=== PATIENT | male | born 1955 | race Caucasian/White ===

== ENCOUNTER 2017-09-20 11:47 | Inpatient (IN) | payer OTHER, SELFPAY ==
[2017-09-20 12:41] LABS: #Basophils 0.1 thou/uL (0.0-0.2); #Lymphocytes 0.2 thou/uL (1.20-3.40); #Monocytes 0.1 thou/uL (0.11-0.59); #Neutrophils 7.3 thou/uL (1.40-6.50); %Basophils 1.6 % (0.0-1.0); %Eosinophils 0.2 % (0.0-10.0); %Lymphocytes 3.1 % (21.0-51.0); %Monocytes 0.7 % (0.0-10.0); %Neutrophils 94.4 % (42.0-75.0); Mean Corpuscular HGB CONC 31.7 g/dL (32.0-36.0); Mean Corpuscular Hemoglobin 29.9 pg (27.0-31.0); Mean Corpuscular Volume 94.2 fl (80.0-94.0); Mean Platelet Volume 8.7 fL (7.4-10.4); Platelet Count 200 thou/uL (130-400); RBC Distribution Width 12.1 % (11.5-14.5); White Blood Cell (WBC) Count 7.7 thou/uL (4.8-10.8)
[2017-09-20 13:02] LABS: ALT (SGPT) 10 U/L (8-55); AST (SGOT) 14 U/L (5-34); Albumin 3.9 g/dL (3.5-5.0); Alkaline Phosphatase 113 U/L (40-150); Anion Gap 14 mmol/L (10-20); BUN (Urea Nitrogen) 18 mg/dL (8.4-25.7); Bilirubin, Total 0.3 mg/dL (0.2-1.2); CK (CPK) 73 U/L (30-200); Calc. Creatinine Clearance 0 mL/min (70-130); Calcium 8.8 mg/dL (7.8-10.44); Carbon Dioxide 24 mmol/L (22-29); Chloride 97 mmol/L (98-107); Estimated GFR-MDRD 47; Globulin 3.1 g/dL (2.4-3.5); Glucose 482 mg/dL (70-105); Potassium 4.4 mmol/L (3.5-5.1); Sodium 131 mmol/L (136-145)
[2017-09-20 13:07] LABS: CKMB 3.5 ng/mL (0-6.6); Troponin I 0.011 ng/mL (< 0.028)
--- NOTE | 2017-09-20 13:09 | RAD ---
RADIOGRAPH OF CHEST 2 VIEWS: Date: 09/20/17 COMPARISON: 06/03/16 and 05/31/16. INDICATION: Bilateral effusions. FINDINGS: There is a moderate left and mild right pleural fluid collection. There is patchy density at the mid to inferior left lung, predominantly laterally. Cardiac silhouette is mildly prominent. Evidence of p rior sternotomy. Since prior exam, removal of right subclavian catheter and left chest tube. There is a punctate radiopaque density projecting at the inferomedial right hemithorax, which is stable when comparing to the 05/31/16 exam. IMPRESSION: Moderate left and mild right pleural effusion. POS: [facility]
[2017-09-20] MEDS ORDERED: Insulin Regular 300 UNITS/3 ML VIAL ONE (13:39)
[2017-09-20 16:42] VITALS: BMI 28.5
[2017-09-20] MEDS ORDERED: Ondansetron HCl/PF 4 MG/2 ML Vial IVP PRN ×2 (17:05→17:56)
[2017-09-20] MEDS ORDERED: Acetaminophen 325 MG TAB PO PRN ×2 (17:05→17:56)
[2017-09-20] MEDS ORDERED: Sodium Chloride 0.9% 1,000 ML IV SCH (17:05)
[2017-09-20] MEDS ORDERED: Ondansetron ODT 4 MG TAB SL PRN (17:05)
[2017-09-20] MEDS ORDERED: Bisacodyl 10 MG SUPP PR PRN (17:56)
[2017-09-20] MEDS ORDERED: Bisacodyl 5 MG TAB PO PRN (17:56)
[2017-09-20] MEDS ORDERED: Dextrose 50% Abboject 50 ML SYRINGE SLOW IVP PRN (17:56)
[2017-09-20] MEDS ORDERED: Ondansetron ODT 4 MG TAB PO PRN (17:56)
[2017-09-20] MEDS ORDERED: Acetaminophen 650 MG Suppository PR PRN (17:56)
[2017-09-20] MEDS ORDERED: HumaLOG 300 UNITS/3 ML VIAL SC PRN (17:56)
[2017-09-20] MEDS ORDERED: Dextrose 5% in Water 1,000 ML IV PRN (17:56)
--- NOTE | 2017-09-20 18:08 | HP ---
DATE OF ADMISSION: 09/20/2017 CHIEF COMPLAINT: Shortness of breath. HISTORY OF PRESENT ILLNESS: This is a 62-year-old male with about a week history of worsening cough and shortness of breath that had just been progressing. He was seen in [place] ED given Rocephin. Blood cultures were drawn, given nebs as well as Lasix and subsequently transferred to. He left [facility] and then decided to come to [place]. He currently says he feels quite a bit better. Still has a bit of a cough, but he specifically denies any chest pain, fever, purulent sputum, hemoptysis, nausea, vomiting, diarrhea, constipation, hematochezia, melena. He has had some orthopnea over the last several days as well as paroxysmal nocturnal dyspnea that started last night. REVIEW OF SYSTEMS: All systems reviewed and are otherwise negative. PAST MEDICAL HISTORY: Significant for diabetes 2, hypertension, hyperlipidemia , history of thyroglossal duct infection, history of C6-C7 osteomyelitis and paraspinal abscess, coronary artery disease with triple vessel bypass. PAST SURGICAL HISTORY: Includes a history of thyroglossal duct surgery, CABG, 3 -vessel. FAMILY HISTORY: Significant for hypertension, coronary artery disease. SOCIAL HISTORY: He is a smoker. Drinks occasionally. Works in [employer]. No drug use. MEDICATIONS: Include metformin, lisinopril, hydrocodone, Lasix, Pepcid, Plavix , Coreg, Lipitor and aspirin. He ran out of these in the recent past. ALLERGIES: No known drug allergies. PHYSICAL EXAMINATION: VITAL SIGNS: BP 154/80, pulse 100, respirations 18, O2 sat 95% on room air, temperature 98.0 CONSTITUTIONAL: No acute distress, resting comfortably in bed, sitting up. HEENT: Atraumatic. EYES: No icterus or injection. ENT: Nose normal. No nasal deformity. Mucous membranes moist. NECK: Trachea is midline. CHEST: No increased work of breathing. He has no wheezes. Diffuse crackles on the left lung and some on the right lung. CARDIOVASCULAR: Regular rate and rhythm without murmur, gallops or rub. The sternotomy scar is well healed. GASTROINTESTINAL: Bowel sounds positive. Nontender to palpation. No palpable organomegaly. GENITOURINARY: Deferred. NEUROLOGIC: Motor, 5/5 in the right upper extremity, 5/5 in bilateral lower extremities. He has some weakness, especially of the distal left arm from previous injury during thyroglossal duct surgery. SKIN: He has what appear to be diffuse guttate hypomelanosis likely related to skin damage as well as a petechia and increased pigmentation on his center of his chest downward from. He says it has been there for as long as he can remember because he wears his shirt open while working. PSYCHIATRIC: Normal. Mood and affect appropriate for current medical condition. Alert and oriented x3. MUSCULOSKELETAL: No obvious effusion, deformity or contracture with the exception of flattening with thenar eminence of the left upper extremity and some of the interosseous muscles. IMAGING: Chest x-ray, he has bilateral effusions, left greater than right. No obvious airspace disease. The effusion on the left appears to be along the left wall as well, chest wall as well. LABORATORY DATA: Include white count 7.7, hemoglobin 14, platelets 200. Chemistries: Sodium 131, potassium 4.4, chloride 97, bicarbonate 24, anion gap 14, BUN 18, creatinine 1.52 with estimated GFR of 47, glucose 482 and a BNP high at 442.5. ASSESSMENT AND PLAN: This is a 62-year-old male with: 1. Acute on chronic systolic heart failure. We will admit to tele, begin diuresis with IV Lasix. Continue home medications and has no signs currently of shock, supplement with O2 as necessary. 2. Pleural effusions on bedside ultrasound. Left is definitely greater than right. I cannot really find a significant right-sided effusion which raises concern for other pathology besides heart failure. Currently, he does not have significant signs of pneumonia, although he is given Rocephin and blood cultures drawn outside ER which we will follow up on. Besides cough, he has no white count, fever, and he likely has some underlying obstructive pulmonary disease related to his longstanding history of smoking. If no improvement with Lasix, we will consider treatment with antibiotics as well as scan his chest to evaluate the effusion for any underlying pneumonia, empyema or malignancy. 3. Diabetes mellitus, uncontrolled. He has received IV fluid bolus already. We will go ahead and give him sliding scale insulin. Send A1c, TSH, lipid panel. 4. Acute kidney injury likely related to his hyperglycemia but could potentially be progression related to his diabetes and hypertension. We will manage as above and recheck in the morning. 5. Hyponatremia feel like this is most likely his heart failure as well as potential pleural effusion. We will monitor and recheck in the morning, fluid restrictions as above for heart failure. 6. Hypertension, restart home blood pressure meds and monitor including a statin and aspirin. 7. Hyperlipidemia. Continue statin. 8. History of coronary artery disease. Continue aspirin, statin, beta jamel , SARIKA inhibitor. 9. Obesity. Counseled diet and exercise. 10. Tobacco abuse, counseled on tobacco cessation. 11. Deep venous thrombosis prophylaxis with Lovenox. 12. Gastrointestinal prophylaxis with diet. MTDD
[2017-09-20] MEDS ORDERED: Enoxaparin Sodium 40 MG/0.4 ML SYRINGE SC SCH (18:15)
[2017-09-20] MEDS ORDERED: Furosemide 40 MG/4 ML VIAL SLOW IVP SCH (18:15)
[2017-09-20 18:23] LABS: Hemoglobin A1c 8.7 % (4.0-6.0)
[2017-09-20 18:34] LABS: Phosphorus 2.7 mg/dL (2.3-4.7)
[2017-09-20 18:41] LABS: Troponin I 0.017 ng/mL (< 0.028)
[2017-09-20] MEDS: HumaLOG 300 UNITS/3 ML VIAL SC PRN (20:41)
[2017-09-20] MEDS: Sulfameth/Trimethoprim DS 800-160mg TAB PO SCH (20:41)
[2017-09-20] MEDS: Atorvastatin Calcium 40 MG TAB PO SCH (20:41)
[2017-09-20] MEDS: Carvedilol 3.125 MG TAB PO SCH (20:41)
[2017-09-20] MEDS ORDERED: FLU VACC QS2017-18 36 mo. & older 0.5 ML SYRINGE IM ONE (21:00)
[2017-09-20 21:05] LABS: Troponin I 0.012 ng/mL (< 0.028)
--- NOTE | 2017-09-20 22:39 | HP-2 ---
DATE OF ADMISSION: 09/20/2017 CODE STATUS: FULL. PRIMARY CARE PHYSICIAN: Fernando baker. ATTENDING: Luther Pappas MD RESIDENT: Gurpreet Banegas MD, PGY1. SPECIALIST: He sees his cognos bi developer, Dr. Napoles. CHIEF COMPLAINT: Shortness of breath. HISTORY OF PRESENT ILLNESS: This is a 62-year-old male that comes in with a recent episode of shortness of breath last night in which he got hot and sweaty, real short of breath, did not have any chest pain, but said it felt like his heart attack back in 2016. The patient states that he went to the [facility] last night for this. At this time, they gave him steroids, Rocephin, Lasix, and nitro, but we are going to admit him, but at this time he decided to leave [place] and come to [place] because this is where his cognos bi developer, Dr. Napoles was. The patient denied any dizziness, headache, lightheadedness. Denied any chest pain or radiation of pain anywhere. Has not had any episodes of shortness of breath since, not requiring oxygen at this time. Denied any swelling in his legs or edema. Did report about a week ago having some cough and nasal congestion, did vomit x1 day last week, thought he had the flu. He says he is still having the nasal congestion, but everything else has since resolved. Denies any fever or chills. Denies any ear pain. Denies any rashes. Denies any nausea, vomiting, diarrhea, or constipation. Denies any urinary symptoms, burning with urination, or urinary retention. The patient states that he had a heart echo back 6-7 months ago, was told he needed another follow up heart echo, but has not since done it. He says he recently saw Dr. Napoles a week ago and Dr. Napoles said he looked good and recently took him off his Plavix. REVIEW OF SYSTEMS: All review of systems not listed in the HPI, otherwise negative at this time. PAST MEDICAL HISTORY: History of 3-vessel CABG, diabetes mellitus type 2, uncontrolled hypertension, noncompliance, with systolic CHF with a past EF of 35 %. PAST SURGICAL HISTORY: I&D of thyroglossal duct cyst with residual left arm deficits, I&D of sebaceous cyst in the neck and heart catheterization back in 2014 and the 3-vessel CABG in 2016. ALLERGIES: No known drug allergies. MEDICATIONS: 1. Atorvastatin 40 mg. 2. Carvedilol 3.125 mg b.i.d. 3. Bactrim 800 mg/160 mg 2 times a day. 4. Aspirin 81 mg. FAMILY HISTORY: Insignificant. SOCIAL HISTORY: One pack per day smoker for 40+ years. He has recently cut back from 3 packs per day. Alcohol: None. Drugs: None. PHYSICAL EXAMINATION: VITAL SIGNS: Blood pressure is 139/76, pulse 96, respirations 18, temperature 98.0, pulse ox 98% on room air. Current weight 80 kilograms. GENERAL: Alert and oriented x3, well-developed, well-nourished, appropriately interactive. EYES: PERRLA. Conjunctivae normal. ENT: Nasal mucosa within normal limits. Oropharynx within normal limits. NECK: Supple. No lymphadenopathy, no thyromegaly, no bruits. CARDIOVASCULAR: Regular rate and rhythm. No murmurs, no gallops. Radial pulses and pedal pulses palpated bilaterally. RESPIRATORY: Normal breathing effort. No retraction. Some mild crackles. Decreased breath sounds in the bases bilaterally. SKIN: Warm, dry. No lesions noted. ABDOMEN: Soft, nontender to palpation. Bowel sounds heard in all 4 quadrants, moderately distended of his abdomen. MUSCULOSKELETAL: Structure within normal limit. Full range of motion. No edema. No pitting edema in his lower extremities at all. NEUROLOGIC: No focal neuro deficits. PSYCHIATRIC: Appropriate. LABORATORY DATA: White blood cell count 7.7, hemoglobin 14.0, hematocrit 44.3, MCV 94.7, 94.4% neutrophils. Platelets are 200. CK 73, CK-MB 3.5, troponin is 0.011. BNP is 442.5. Sodium is 131, potassium 4.4, chloride 97, CO2 of 24, BUN 18, creatinine 1.52, glucose is 482, calcium is 8.8, total protein 7.0, albumin 3.9, total bilirubin 0.3, AST 14, ALT 10, alkaline phos 113. Chest x- ray showed moderate left and mild right pleural effusions. ASSESSMENT AND PLAN: 1. Acute congestive heart failure exacerbation. We will give him a dose of Lasix IV 40 mg a day and then we will continue Lasix b.i.d. tomorrow. We will get a repeat chest x-ray to see how he is doing tomorrow. We will get a repeat echo as he was to have one on followup and see where he is at with his ejection fraction. We will get a flu swab as he might have some illness. Dr. Napoles was contacted by the ER and see if he sees him. We will put him on strict I's and O's, daily weights. We will check a TSH, magnesium, phosphorus. We will trend his troponins as he mentioned this may be felt like his old heart attack. Check a fasting lipid panel in the morning and repeat chest x-ray in the morning. 2. Acute kidney injury. We will recheck BMP in the morning. We are holding fluids right now as he is probably having a little bit of congestive heart failure exacerbation, giving him Lasix. We will see how his a.m. creatinine does. He may have some fluid in his belly. His SIMÓN might actually improved with Lasix. 3. Diabetes mellitus 2, uncontrolled. We will get a hemoglobin A1c. He has got regular insulin 5 units in the ER. We will put him on mild sliding scale insulin and do Accu-Cheks a.c. and at bedtime. 4. Hypertension. Continue home meds. 5. Sebacous Neck Cysts. Continue the Bactrim. He will see Dr. Arenas for removal on 09/26/2017. 6. Deep venous thrombosis prophylaxis is Lovenox. LD
[2017-09-21 05:06] LABS: #Lymphocytes 0.7 thou/uL (1.20-3.40); #Monocytes 0.4 thou/uL (0.11-0.59); %Basophils 0.3 % (0.0-1.0); %Monocytes 3.1 % (0.0-10.0); %Neutrophils 90.6 % (42.0-75.0); Hemoglobin 13.2 g/dL (14.0-18.0); Mean Corpuscular HGB CONC 32.3 g/dL (32.0-36.0); Mean Corpuscular Hemoglobin 30.2 pg (27.0-31.0); Mean Corpuscular Volume 93.4 fl (80.0-94.0); Platelet Count 213 thou/uL (130-400); RBC Distribution Width 12.1 % (11.5-14.5); Red Blood Cell (RBC) Count 4.38 mill/uL (4.70-6.10); White Blood Cell (WBC) Count 12.1 thou/uL (4.8-10.8)
--- NOTE | 2017-09-21 06:08 | PDOC.FM ---
Addendum entered and electronically signed by Gurpreet Banegas MD 09/21/17 14:35 : CT read pending Original Note: - Subjective Subjective: Pt reports doing a lot better this morning. Denies any SOB events overnight. Denies any other acute events overnight. Denies any chest pain. Denies any fever or chills. Denies any lightheadness or dizziness. Denies any concerning sx 's at this time. No other concerns. - Objective MAR Reviewed: Yes Vital Signs & Weight: Vital Signs (12 hours) Temp Pulse Resp BP BP Pulse Ox 09/21/17 03:09 97.8 F 100 18 145/69 H 92 L 09/20/17 23:38 97.7 F 100 18 130/66 93 L 09/20/17 19:15 98 F 87 18 140/70 96 Weight Weight 85.275 kg I&O: 09/19/17 09/20/17 09/21/17 06:59 06:59 06:59 Intake Total 240 Balance 240 Result Diagrams: 09/21/17 04:27 09/21/17 04:27 EKG Reviewed by me: Yes Radiology Reviewed by me: Yes (Radiology repeat pending today) <Gurpreet Banegas - Last Filed: 09/21/17 08:48> - Objective Vital Signs & Weight: Vital Signs (12 hours) Temp Pulse Pulse Pulse Resp BP BP 09/21/17 11:58 97.8 F 92 18 09/21/17 10:54 124 H 121 H 141/68 H 150/67 H 09/21/17 07:45 97.9 F 91 16 09/21/17 03:09 97.8 F 100 18 BP BP Pulse Ox Pulse Ox Pulse Ox 09/21/17 11:58 145/77 H 94 L 09/21/17 10:54 96 94 L 09/21/17 07:45 140/69 94 L 09/21/17 03:09 145/69 H 92 L Weight Weight 85.275 kg I&O: 09/20/17 09/21/17 09/22/17 06:59 06:59 06:59 Intake Total 480 Output Total 1700 Balance -1220 Result Diagrams: 09/21/17 04:27 09/21/17 04:27 <Luther Pappas - Last Filed: 09/21/17 14:55> Phys Exam - Physical Examination HEENT: PERRLA, moist MMs Neck: no nodes, supple, full ROM Respiratory: no wheezing, no rales, no rhonchi mild crackles and decreased breath sounds on the left side in base Cardiovascular: RRR, no significant murmur, no rub Gastrointestinal: soft, non-tender, positive bowel sounds mildly distended Musculoskeletal: no edema, pulses present Neurological: non-focal, normal sensation, moves all 4 limbs Lymphatic: no nodes Psychiatric: normal affect Skin: no rash, cap refill <2 seconds <Gurpreet Banegas - Last Filed: 09/21/17 08:48> Dx/Plan (1) Acute exacerbation of CHF (congestive heart failure) Code(s): I50.9 - HEART FAILURE, UNSPECIFIED Status: Acute (2) CAD (coronary artery disease) Code(s): I25.10 - ATHSCL HEART DISEASE OF [place] CORONARY ARTERY W/O ANG PCTRS Status: Chronic (3) DM type 2 (diabetes mellitus, type 2) Status: Chronic QualifierTitle: Diabetes mellitus complication status: with hyperglycemia Diabetes mellitus termite inspector insulin use: without longterm use Qualified Code(s): E11.65 - Type 2 diabetes mellitus with hyperglycemia (4) HTN (hypertension) Code(s): I10 - ESSENTIAL (PRIMARY) HYPERTENSION Status: Chronic (5) Tobacco abuse Code(s): Z72.0 - TOBACCO USE Status: Chronic - Plan Plan: 1) Acute CHF excacerbation -Pt comes in with episode of SOB two nights ago. Increasing SOB two nights prior in which he was having to prop himself out. -CXR 09/20 shows bilateral pleural effusions. Repeat Cxray pending today. -Lasix IV BID -Fluid Restriciton -Daily Weights -Heart Failure clinic and Cardiac Rehab counseled. -ECHO Pending -Continuing home meds -Trops trended and normal. No acute heart attack likely. -TSH normal. Mg, P normal. -FLP pending 2) DM2 w/ hyperglycemia -Pt not taking any medications at home. Hgb A1C 8.7. -Mod SSI. Sugars still elevated overnight. Sugars have started to come home. -Accuchecks ACHS -Likely will start on metformin as well today. 3) SIMÓN -Cr 1.52 yesterday. 1.51 today. Baseline Cr back in 2016 was 1. -Awaiting BMP. No fluids due to CHF above. But maybe pushing fluid to his kidneys will improve Cr. -Also termite inspector Diabetic untreated. Cr could be at new baseline. 4)HTN -continue home meds. BP stable at this time 5)Tobacco Abuse -has cut down from 3 ppd to 1 ppd. counseled to continue cutting back <Gurpreet Banegas - Last Filed: 09/21/17 08:48> Attending Addendum - Attending Addendum I personally evaluated the patient and discussed the management with Dr. Alston. I agree with and repeated the History, Examination, Assessment and Plan documented above with any addition or exceptions noted below. Pt markedly improved. Agree with exam. Await CT read, may consider pulm consultation. Continue medical mgmt of CAD, DM. Counseled extensively concerning diet, exercise, and tobacco cessation. I spent 40 minutes with patient and on the floor with > 50% spent counseling concerning management of his comorbidities, possibilities for the hospitalization, and outpatient considerations. <Luther Pappas - Last Filed: 09/21/17 14:55>
[2017-09-21] MEDS ORDERED: Furosemide 40 MG/4 ML VIAL SLOW IVP SCH ×2 (06:15→06:30)
[2017-09-21 06:21] LABS: Anion Gap 13 mmol/L (10-20); BUN (Urea Nitrogen) 32 mg/dL (8.4-25.7); Calc. Creatinine Clearance 63 mL/min (70-130); Calcium 9.2 mg/dL (7.8-10.44); Carbon Dioxide 24 mmol/L (22-29); Cardiac Risk 4.1 (Less than 4.5); Chloride 100 mmol/L (98-107); Cholesterol 119 mg/dl (< 200 Desired); Estimated GFR-MDRD 47; Glucose 216 mg/dL (70-105); HDL Cholesterol 29 mg/dL (>60 Neg Risk); LDL Cholesterol, Calculated 76 mg/dL; Potassium 4.3 mmol/L (3.5-5.1); Sodium 133 mmol/L (136-145); Triglycerides 72 mg/dL (Less than 150)
[2017-09-21] MEDS ORDERED: metFORMIN 500 MG TAB PO SCH ×2 (09:00)
[2017-09-21] MEDS ORDERED: Insulin Detemir 100 UNITS/ML 10 UNITS in Pre-Filled Syringe 1 EACH SC SCH (09:00)
--- NOTE | 2017-09-21 09:10 | RAD ---
PA AND LATERAL VIEWS OF CHEST: Date: 09/21/17 HISTORY: Shortness of breath. FINDINGS: Comparison made with exam from previous day. Changes of median sternotomy again seen. The heart size is stable. Moderate size left pleural effusio n with adjacent infiltrates/atelectatic changes again seen. Right lung is clear. A tiny right pleural effusion may be present. IMPRESSION: Stable exam. POS: [facility]
[2017-09-21] MEDS: Sulfameth/Trimethoprim DS 800-160mg TAB PO SCH ×2 (10:35→20:40)
[2017-09-21] MEDS: Enoxaparin Sodium 40 MG/0.4 ML SYRINGE SC SCH (10:35)
[2017-09-21] MEDS: Carvedilol 3.125 MG TAB PO SCH ×2 (10:35→20:40)
[2017-09-21] MEDS: HumaLOG 300 UNITS/3 ML VIAL SC PRN (12:01)
--- NOTE | 2017-09-21 14:16 | CT ---
NONCONTRAST CT THORAX: Date: 09/21/17 HISTORY: Right lower lobe infiltrate, history of smoking. Shortness of breath last week. COMPARISON: CT angiogram thorax on 05/29/16. FINDINGS: There is a loculated pleural fluid collection seen at the left lung base. There is patchy parenchymal opacity present in the lateral aspect of the lingula, as well as parenchymal changes adjacent to the collection in the left lower lobe. These findings may be related to areas of atelectasis, but the de nsity within the lingula has a more nodular and mass-like appearance and neoplastic process cannot be entirely excluded. Additional linear densities are also seen in this region, probably related to are as of scarring. A calcified granuloma is seen in the right lower lobe. A tiny bleb is seen within the right upper lob e inferiorly. There is a tiny pulmonary nodule seen at the lateral aspect of the right upper lobe elena suring approximately 4.0 mm. Lack of intravenous contrast limits sensitivity for evaluation of the mediastinal structures. There a re postsurgical changes related to CABG. Vascular calcifications are seen in the thoracic aorta and t o a lesser extent in the coronary arteries. Calcified granulomata are seen in each hilar region, as well as in the right lower lobe. Visualized upper abdomen demonstrates grossly normal nonenhanced CT appearance aside from calcified g ranuloma in the spleen and a moderate amount of retained fecal material in the visualized splenic fle xure. Remote left-sided rib fractures are seen. The right pleural effusion noted on prior exam has resolved. The left pleural fluid collection was no t seen on the prior study. IMPRESSION: 1. Small loculated pleural fluid collection seen at the posterior and posterolateral left lung base with adjacent parenchymal lung changes which may be related to atelectasis. However, one of the adjac ent patchy parenchymal changes within the lingula has a more nodular appearance. Neoplastic process c annot be entirely excluded, but this is probably related to an area of rounded atelectasis. There are areas of scarring in the left upper lobe. 2. Nonspecific 4.0 mm noncalcified right upper lobe pulmonary nodule. Right lung is otherwise clear. 3. Evidence of prior granulomatous disease. 4. Moderate amount of retained fecal material in the colon. 5. Nonspecific prominent prevascular space lymph node measuring 10.0 mm in short axis dimension. POS: [facility]
[2017-09-21] MEDS: Furosemide 40 MG/4 ML VIAL SLOW IVP SCH (14:45)
[2017-09-21] MEDS: metFORMIN 500 MG TAB PO SCH (17:27)
[2017-09-21] MEDS: Atorvastatin Calcium 40 MG TAB PO SCH (20:40)
[2017-09-22] MEDS: Furosemide 40 MG/4 ML VIAL SLOW IVP SCH ×2 (05:27→14:54)
--- NOTE | 2017-09-22 05:53 | PDOC.FM ---
- Subjective Subjective: Pt doing well. Denies any acute events overnight. Denies any more SOB. Says he feels great and denies any sx's at this time. Denies any fever or chills. Denies any swelling. No other concerns at this time. - Objective MAR Reviewed: Yes Vital Signs & Weight: Vital Signs (12 hours) Temp Pulse Resp BP Pulse Ox 09/22/17 04:07 98.2 F 79 18 140/75 92 L 09/21/17 19:00 98.4 F 89 18 157/80 H 96 Weight Weight 84.504 kg I&O: 09/20/17 09/21/17 09/22/17 06:59 06:59 06:59 Intake Total 480 1920 Output Total 1700 3450 Balance -1220 -1530 Result Diagrams: 09/22/17 06:15 09/22/17 06:15 Radiology Reviewed by me: Yes Radiology: CT Chest: 1. Small loculated pleural fluid collection seen at the posterior and posterolateral left lung base w/ adjacent parenchymal lung changes which may be related to atelectasis. However, one of the adjuacent patchy parenchymal changes w/n the lingula has a more nodular appearance. neoplastic process cannot be entirely excluded, but this is probably related to an area of rounded atelectasis. there are areas of scarring in the [place]. 2. Nonspecific 4.0 noncalcified RUL pulm nodule. RL clear 3. Evidence of prior granulomatous dz 4. Mod amount fecal material in colon 5. Nonspecific prominent prevascular space LN measuring 10 mm in short axis dimension. <Gurpreet Banegas - Last Filed: 09/22/17 07:34> - Objective Vital Signs & Weight: Vital Signs (12 hours) Temp Pulse Resp BP Pulse Ox 09/22/17 07:43 97.9 F 86 18 95 09/22/17 07:15 97.9 F 86 18 167/81 H 95 09/22/17 04:07 98.2 F 79 18 140/75 92 L Weight Weight 186 lb 4.8 oz I&O: 09/21/17 09/22/17 09/23/17 06:59 06:59 06:59 Intake Total 480 1920 Output Total 1700 3450 Balance -1220 -1530 Result Diagrams: 09/22/17 06:15 09/22/17 06:15 <Jairo Denny - Last Filed: 09/22/17 10:38> Phys Exam - Physical Examination Constitutional: NAD HEENT: PERRLA, moist MMs Neck: no nodes, no JVD, supple, full ROM Respiratory: no wheezing, no rales Decreased breath sounds on left. Mild crackles auscultated some rhonchi noted Cardiovascular: RRR, no significant murmur, no rub Gastrointestinal: soft, non-tender, no distention, positive bowel sounds Musculoskeletal: no edema, pulses present Neurological: non-focal, normal sensation, moves all 4 limbs Lymphatic: no nodes Psychiatric: normal affect Skin: no rash, normal turgor <Gurpreet Banegas - Last Filed: 09/22/17 07:34> Dx/Plan (1) Acute exacerbation of CHF (congestive heart failure) Code(s): I50.9 - HEART FAILURE, UNSPECIFIED Status: Acute (2) CAD (coronary artery disease) Code(s): I25.10 - ATHSCL HEART DISEASE OF [place] CORONARY ARTERY W/O ANG PCTRS Status: Chronic (3) Pleural effusion on left Code(s): J90 - PLEURAL EFFUSION, NOT ELSEWHERE CLASSIFIED Status: Acute (4) DM type 2 (diabetes mellitus, type 2) Status: Chronic QualifierTitle: Diabetes mellitus complication status: with hyperglycemia Diabetes mellitus longterm insulin use: without longterm use Qualified Code(s): E11.65 - Type 2 diabetes mellitus with hyperglycemia (5) HTN (hypertension) Code(s): I10 - ESSENTIAL (PRIMARY) HYPERTENSION Status: Chronic (6) Tobacco abuse Code(s): Z72.0 - TOBACCO USE Status: Chronic - Plan Plan: Acute CHF excacerbation -Pt comes in with episode of SOB two nights ago. Increasing SOB two nights prior in which he was having to prop himself out. -CXR 09/20 shows bilateral pleural effusions. Cxray 09/21 stable exam. -CT Chest- Shows loculated pleural fluid. Possible nodular appearance. Neoplastic process can't be excluded. Nonspecific noncalcified upper veronica pulm nodule in RL. Prior granulomatous dz. Prominent prevascular space LN measuing 10.0 mm in short axis dimension. -Lasix IV BID -Fluid Restriciton -Daily Weights -Heart Failure clinic and Cardiac Rehab counseled. -ECHO- EF 45-50%. -Continuing home meds -Trops trended and normal. No acute heart attack likely. -TSH normal. Mg, P normal. -FLP- HDL low Pleural Effusion of L Lung -Both cxray show same effusion with little improvement after lasix therapy. CT chest possibly concerning for neoplastic process. Since of unilateral presentation of pleural effusion, does not fit CHF picture, have consulted Pulm Pulmonology Consulted- Dr. Moulton- Will follow recs DM2 w/ hyperglycemia -Pt not taking any medications at home. Hgb A1C 8.7. -Mod SSI. Sugars still elevated overnight. Sugars have started to come dome -Accuchecks ACHS -Metformin started. will watch with GFR SIMÓN -Cr 1.52 yesterday. 1.51 today. Baseline Cr back in 2016 was 1. -Awaiting BMP. No fluids due to CHF above. But maybe pushing fluid to his kidneys will improve Cr. 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 HTN -continue home meds. BP stable at this time Tobacco Abuse -has cut down from 3 ppd to 1 ppd. counseled to continue cutting back <Gurpreet Banegas - Last Filed: 09/22/17 07:34> Attending Addendum - Attending Addendum I personally evaluated the patient and discussed the management with [Bassam ] I agree with the History, Examination, Assessment and Plan documented above. We are awaiting Pulmonology to see him and assess findings on his recent CT scan. Once they have given their plan he is stable for discharge. <Jairo Denny - Last Filed: 09/22/17 10:38>
[2017-09-22 06:33] LABS: #Basophils 0.1 thou/uL (0.0-0.2); #Eosinphils 0.2 thou/uL (0.0-0.7); #Lymphocytes 2.2 thou/uL (1.20-3.40); #Monocytes 0.6 thou/uL (0.11-0.59); #Neutrophils 6.9 thou/uL (1.40-6.50); %Basophils 0.7 % (0.0-1.0); %Lymphocytes 22.1 % (21.0-51.0); %Monocytes 5.5 % (0.0-10.0); %Neutrophils 69.7 % (42.0-75.0); Hemoglobin 15.1 g/dL (14.0-18.0); Mean Corpuscular HGB CONC 31.8 g/dL (32.0-36.0); Mean Corpuscular Hemoglobin 30.4 pg (27.0-31.0); Mean Corpuscular Volume 95.7 fl (80.0-94.0); Mean Platelet Volume 9.3 fL (7.4-10.4); Platelet Count 222 thou/uL (130-400); RBC Distribution Width 12.5 % (11.5-14.5); Red Blood Cell (RBC) Count 4.97 mill/uL (4.70-6.10); White Blood Cell (WBC) Count 9.9 thou/uL (4.8-10.8)
[2017-09-22 06:50] LABS: Anion Gap 13 mmol/L (10-20); BUN (Urea Nitrogen) 34 mg/dL (8.4-25.7); Calc. Creatinine Clearance 59 mL/min (70-130); Calcium 9.1 mg/dL (7.8-10.44); Carbon Dioxide 23 mmol/L (22-29); Chloride 100 mmol/L (98-107); Estimated GFR-MDRD 44; Glucose 200 mg/dL (70-105); Potassium 4.2 mmol/L (3.5-5.1); Sodium 132 mmol/L (136-145)
[2017-09-22] MEDS: metFORMIN 500 MG TAB PO SCH ×2 (08:15→16:22)
[2017-09-22] MEDS: Carvedilol 3.125 MG TAB PO SCH (08:15)
[2017-09-22] MEDS: Sulfameth/Trimethoprim DS 800-160mg TAB PO SCH (08:15)
[2017-09-22] MEDS: Enoxaparin Sodium 40 MG/0.4 ML SYRINGE SC SCH (08:15)
[2017-09-22 16:22] VITALS: BP 155/83; TEMP 98.9
--- NOTE | 2017-09-25 09:19 | DIS-2 ---
DATE OF ADMISSION: 09/20/2017 DATE OF DISCHARGE: 09/22/2017 CONSULTS: Dr. Moulton, but he never saw the patient. PROCEDURES: 1. We did get an echo, which showed EF of 45%-50%, normal-sized atrium, left ventricular size normal, mild aortic regurg, and moderate mitral regurgitation. 2. Chest x-ray on 09/20/2017 showed moderate left and mild right pleural effusion. 3. Chest x-ray repeat on 09/21/2017 showed stable exam. 4. Chest CT on 09/21/2017 showed: A. Small loculated pleural fluid collection seen at the posterior and posterolateral left lung base with adjacent parenchymal lung changes, which may be related to atelectasis; however, one of the adjacent patchy parenchymal changes within the lingula has a more nodular appearance. Neoplastic process cannot be entirely excluded, but this is probably related to an area of noted atelectasis. There are areas of scarring in the left upper lobe. B. Nonspecific 4 mm noncalcified right upper lobe pulmonary nodule, right lung is otherwise clear. C. Evidence of prior granulomatous disease. D. Moderate amount of retained fecal matter in the colon. E. Nonspecific prominent prevascular space lymph node measuring 10 mm in short axis dimension. PRIMARY DIAGNOSES: Included: 1. Acute congestive heart failure exacerbation and coronary artery disease, pleural effusion on the left. 2. Diabetes mellitus, type 2. 3. Hypertension and tobacco abuse. DISCHARGE MEDICATIONS: Include Lasix 20 mg p.o. p.r.n., metformin 500 mg p.o. b.i.d., acetaminophen 650 mg p.o. q.4 hours as needed, aspirin 81 mg p.o. daily , atorvastatin 40 mg p.o. at bedtime, carvedilol 3.125 mg p.o. b.i.d., Bactrim 800 mg/160 mg p.o. b.i.d. No medications were discontinued at this time. HISTORY OF PRESENT ILLNESS AND BRIEF HOSPITAL COURSE: This is a 62-year-old, male, who comes in with a recent episode of shortness of breath that happened last night, in which, he got hot and sweaty, less short of breath, did not have any chest pain and said that it felt like he has heart attack. 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 He denied any other symptoms at this time. When he came in, findings on chest x-ray were found above. His white blood cell count was normal at 7.7. His neutrophil percent was 95.6. His glucose on admission was 482. His creatinine was 1.52 and his CK-MB was 3.5, and his troponin was 0.011. His BNP was 442.5. At this time, we admitted him for acute CHF thinking his pleural effusion may have been the cause, but it was kind of a unilateral pleural effusion, so at this time, I gave him some IV Lasix 40 mg, watch him over the next day and then, a repeat chest x-ray showed stable, so at this time, we started to get a CT chest. Patient had a 40-year smoking history, was still smoking a pack per day and recently cut back to 3 packs per day. Chest CT showed a concerning findings for neoplasm. At this time on Sunday at , we consulted Dr. Moulton, who ended up being too busy and never was able to come to see the patient, but recommended the patient will follow up with him at the outpatient clinic. Patient continued to improve while he was here, he never had any shortness of breath, never required oxygen. He never had any more episodes of being short of breath while being here. Also on admission, he was found that his blood sugar was 482, had never taken care of his diabetes. He got a hemoglobin A1c, which showed 8.7 and we gave him a low dose of regular insulin, put him on mild sliding scale insulin which continued to trend down and we started him on metformin b.i.d. His GFR was right at the baseline around 47. At this time, we thought it would be beneficial for the patient to be on metformin. At this time also we thought, he might have had an acute kidney injury, but it looks like he has chronic kidney disease stage 3, stable, probably from untreated diabetes. I started him on his meds, we continued his home medications for the heart failure. We also outpatient recommended him to take Lasix, recommended he weigh himself every day. If he notices himself to be fluid overloaded to take a dose of lasix). At this time, also on 09/21/2017, his white blood cell count was elevated at 12.1, and we attributed this to the steroids he got the outside ER. We also thought that his blood sugar is probably a little bit more elevated than what it probably was at baseline due to the steroids he got at the outside ER. At this time, patient was anxious to go home on Sunday, did not want to wait for Dr. Moulton to come see him. Dr. Moulton said that he could follow up as an outpatient, so he is going to get schedule an appointment outpatient for that week and we did discharge him. DISPOSITION: Stable. DISCHARGE LOCATION: Home. ACTIVITY: Stable as tolerated. DIET: Heart-healthy diet. FOLLOWUP: We need to setup care with primary care physician. Follow up in 30 days for hospital followup and then follow up with Dr. Moulton within 1 week. LD
--- NOTE | 2017-10-13 17:48 | EKG ---
Test Reason : Blood Pressure : / mmHG Vent. Rate : 097 BPM Atrial Rate : 097 BPM P-R Int : 150 ms QRS Dur : 076 ms QT Int : 376 ms P-R-T Axes : 066 -46 132 degrees QTc Int : 477 ms Normal sinus rhythm Possible Left atrial enlargement Left axis deviation T wave abnormality, consider lateral ischemia Prolonged QT Abnormal ECG No changes 29-MAY-2016 Confirmed by GREGG ALVARES, CECE ([id number]), assistant film editor PERLA CHAKRABORTY ([id number]) on 10/13/2017 5:47:42 PM Referred By: ERNA CRISTOBAL Confirmed By:CECE ESCOBEDO MD
== END 2017-09-22 17:30 | disposition home or self-care (01) | DRG 291 ==
LOC: ERS 11:47 → 2NO 13:56
PROVIDERS: ADMIT Student in an Organized Health Care Education/Training Program; ATTEND Student in an Organized Health Care Education/Training Program
DX: I11.0 Hypertensive heart disease with heart failure (principal); N17.0 Acute kidney failure with tubular necrosis; E87.1 Hypo-osmolality and hyponatremia; Z95.1 Presence of aortocoronary bypass graft; E11.65 Type 2 diabetes mellitus with hyperglycemia; I25.2 Old myocardial infarction; Z79.82 Long term (current) use of aspirin; I50.23 Acute on chronic systolic (congestive) heart failure; L72.3 Sebaceous cyst; I25.10 Atherosclerotic heart disease of native coronary artery without angina pectoris; F17.210 Nicotine dependence, cigarettes, uncomplicated; E78.5 Hyperlipidemia, unspecified; I35.1 Nonrheumatic aortic (valve) insufficiency; I34.0 Nonrheumatic mitral (valve) insufficiency; Z79.84 Long term (current) use of oral hypoglycemic drugs
CPT/HCPCS: 36415; 36416; 71046; 71250; 80048; 80053; 80061; 82553; 83036; 83735; 83880; 84100; 84443; 84484; 85025; 93005; 93306; 93798; 94760; 96361; 96374; J1650; J1815; J1940

== ENCOUNTER 2017-12-06 13:33 | Outpatient (CLI) | payer OTHER | END 2017-12-06 13:34 | disposition home or self-care (01) | LOC: BICRAD 13:33 | PROVIDERS: ATTEND Physician Assistant | DX: I11.0 Hypertensive heart disease with heart failure (principal); I50.22 Chronic systolic (congestive) heart failure; J90 Pleural effusion, not elsewhere classified | CPT/HCPCS: 71046 ==

== ENCOUNTER 2018-01-07 12:39 | Outpatient (CLI) | payer OTHER ==
[2018-01-07] MEDS ORDERED: Iopamidol 370 76% 100 ML VIAL ONE (14:54)
== END 2018-01-07 12:40 | disposition home or self-care (01) ==
LOC: BICCT 12:39
PROVIDERS: ATTEND Thoracic Surgery (Cardiothoracic Vascular Surgery)
DX: I65.22 Occlusion and stenosis of left carotid artery (principal); K11.8 Other diseases of salivary glands
CPT/HCPCS: 70498; 82565

== ENCOUNTER 2020-12-29 23:36 | Emergency (ER) | payer SELFPAY ==
[2020-12-30 00:04] LABS: #Eosinphils 0.9 thou/uL (0.0-0.7); #Lymphocytes 1.3 thou/uL (1.20-3.40); #Monocytes 0.6 thou/uL (0.11-0.59); #Neutrophils 11.1 thou/uL (1.40-6.50); %Basophils 0.3 % (0.0-1.0); %Eosinophils 6.7 % (0.0-10.0); %Lymphocytes 9.3 % (21.0-51.0); %Monocytes 4.2 % (0.0-10.0); %Neutrophils 79.5 % (42.0-75.0); Hemoglobin 14.1 g/dL (14.0-18.0); Mean Corpuscular HGB CONC 33.7 g/dL (32.0-36.0); Mean Corpuscular Hemoglobin 32.7 pg (27.0-31.0); Mean Corpuscular Volume 97.1 fL (78.0-98.0); Mean Platelet Volume 8.8 fL (7.4-10.4); Platelet Count 235 thou/uL (130-400); RBC Distribution Width 12.5 % (11.5-14.5)
[2020-12-30] MEDS ORDERED: Nitroglycerin 2% Ointment 1 INCH/1 GM Packet ONE (00:13)
[2020-12-30 00:19] LABS: ALT (SGPT) 10 U/L (8-55); AST (SGOT) 15 U/L (5-34); Albumin 3.6 g/dL (3.4-4.8); Alkaline Phosphatase 93 U/L (40-110); Anion Gap 14 mmol/L (10-20); BUN (Urea Nitrogen) 22 mg/dL (8.4-25.7); Bilirubin, Total 0.4 mg/dL (0.2-1.2); Calc. Creatinine Clearance 0 mL/min (70-130); Calcium 8.9 mg/dL (7.8-10.44); Carbon Dioxide 24 mmol/L (23-31); Chloride 106 mmol/L (98-107); Globulin 3.2 g/dL (2.4-3.5); Glucose 120 mg/dL (80-115); Potassium 4.5 mmol/L (3.5-5.1); Protein, Total 6.8 g/dL (5.8-8.1); Sodium 139 mmol/L (136-145)
[2020-12-30] MEDS ORDERED: Furosemide 40 MG/4 ML VIAL ONE (01:02)
[2020-12-30 11:36] LABS: SARS-CoV-2 PCR by NAA Not Detected (NotDetected)
== END 2020-12-30 01:05 | disposition home or self-care (01) ==
LOC: ERS 23:36
DX: R06.00 Dyspnea, unspecified (principal); I11.0 Hypertensive heart disease with heart failure; I50.9 Heart failure, unspecified; E78.5 Hyperlipidemia, unspecified; Z20.822 Contact with and (suspected) exposure to COVID-19; I25.2 Old myocardial infarction; Z87.891 Personal history of nicotine dependence; Z79.82 Long term (current) use of aspirin; Z79.899 Other long term (current) drug therapy
CPT/HCPCS: 36415; 71045; 80053; 83880; 84484; 85025; 87635; 93005; 96374; J1940; U0003; U0005

== ENCOUNTER → 2021-12-02 | Day surgery (SDC) | payer OTHER ==
[2021-11-30 14:27] VITALS: BMI 29.5
[2021-12-02 08:38] LABS: #Eosinphils 1.3 thou/uL (0.0-0.7); #Lymphocytes 1.4 thou/uL (1.20-3.40); #Monocytes 0.6 thou/uL (0.11-0.59); #Neutrophils 7.4 thou/uL (1.40-6.50); %Basophils 0.4 % (0.0-1.0); %Eosinophils 11.9 % (0.0-10.0); %Lymphocytes 12.8 % (21.0-51.0); %Monocytes 5.2 % (0.0-10.0); %Neutrophils 69.7 % (42.0-75.0); Hemoglobin 15.2 g/dL (14.0-18.0); Mean Corpuscular HGB CONC 32.9 g/dL (32.0-36.0); Mean Corpuscular Hemoglobin 32.5 pg (27.0-31.0); Mean Corpuscular Volume 98.6 fL (78.0-98.0); Mean Platelet Volume 8.7 fL (7.4-10.4); Platelet Count 175 thou/uL (130-400); RBC Distribution Width 12.5 % (11.5-14.5); Red Blood Cell (RBC) Count 4.68 mill/uL (4.70-6.10); White Blood Cell (WBC) Count 10.6 thou/uL (4.8-10.8)
[2021-12-02 08:46] LABS: INR-International Normal Ratio 0.9; Prothrombin Time 12.1 sec (12.0-14.7)
[2021-12-02 08:47] LABS: PTT 25.2 sec (22.9-36.1)
[2021-12-02 10:59] VITALS: BP 159/81; TEMP 97.7
== END | disposition home or self-care (01) ==
LOC: CT 08:21
PROVIDERS: ATTEND Internal Medicine Critical Care Medicine
PROC: 0BBF3ZX Excision of Right Lower Lung Lobe, Percutaneous Approach, Diagnostic (ICD-10-PCS; principal; 2021-12-02)
DX: R91.1 Solitary pulmonary nodule (principal); J44.9 Chronic obstructive pulmonary disease, unspecified; I11.0 Hypertensive heart disease with heart failure; I50.9 Heart failure, unspecified; E11.9 Type 2 diabetes mellitus without complications; I25.10 Atherosclerotic heart disease of native coronary artery without angina pectoris; E78.5 Hyperlipidemia, unspecified; F17.210 Nicotine dependence, cigarettes, uncomplicated; Z79.82 Long term (current) use of aspirin; Z79.899 Other long term (current) drug therapy; Z95.1 Presence of aortocoronary bypass graft
CPT/HCPCS: 32408; 71045; 77002; 85025; 85610; 85730; 88305

== ENCOUNTER 2021-12-20 08:35 | Outpatient (CLI) | payer OTHER | END 2021-12-20 08:36 | disposition home or self-care (01) | LOC: CT 08:35 | PROVIDERS: ATTEND Specialist | DX: K11.8 Other diseases of salivary glands (principal); I65.22 Occlusion and stenosis of left carotid artery | CPT/HCPCS: 70491; 82565 ==

== ENCOUNTER 2022-01-13 08:09 | Outpatient (CLI) | payer SELFPAY ==
[2022-01-13 08:56] LABS: Mean Corpuscular HGB CONC 32.5 g/dL (32.0-36.0); Mean Corpuscular Hemoglobin 30.4 pg (27.0-33.0); Mean Corpuscular Volume 93.5 fl (81.2-95.1); Mean Platelet Volume 11.5 fl (7.4-10.4); Platelet Count 172 10x3/uL (150-450); RBC Distribution Width 13.3 % (11.5-14.5); Red Blood Cell (RBC) Count 4.93 10x6/uL (4.32-5.72); White Blood Cell (WBC) Count 9.4 10x3/uL (3.5-10.5)
[2022-01-13 09:19] LABS: Anion Gap 16 mmol/L (10-20); BUN (Urea Nitrogen) 38 mg/dL (8.4-25.7); Calc. Creatinine Clearance 0 mL/min (70-130); Calcium 9.5 mg/dL (7.8-10.44); Carbon Dioxide 26 mmol/L (23-31); Chloride 103 mmol/L (98-107); Glucose 168 mg/dL (80-115); Potassium 5.2 mmol/L (3.5-5.1); Sodium 140 mmol/L (136-145)
== END 2022-01-13 08:10 | disposition home or self-care (01) ==
LOC: LABBT 08:09
PROVIDERS: ATTEND Thoracic Surgery (Cardiothoracic Vascular Surgery)
DX: Z01.812 Encounter for preprocedural laboratory examination (principal); R91.8 Other nonspecific abnormal finding of lung field; Z20.822 Contact with and (suspected) exposure to COVID-19
CPT/HCPCS: 80048; 85027; U0003; U0005

== ENCOUNTER 2022-01-13 08:30 | Inpatient (IN) | payer OTHER ==
[2022-01-18] MEDS ORDERED: fentaNYL Citrate/PF 100 MCG/2 ML SYRINGE ONE (06:24)
[2022-01-18] MEDS ORDERED: Phenylephrine 10 MG/ML VIAL ONE (06:25)
[2022-01-18] MEDS ORDERED: Fentanyl 100 MCG/2 ML VIAL ONE ×2 (06:37→10:54)
[2022-01-18] MEDS ORDERED: Midazolam HCl 2 mg/2 ml Vial ONE (06:37)
[2022-01-18] MEDS ORDERED: Sodium Chloride 0.9% 100 ML ONE (07:16)
[2022-01-18] MEDS ORDERED: CEFAZOLIN 2 GM VIAL ONE (07:16)
[2022-01-18] MEDS ORDERED: Lidocaine 1% MPF 2 ML VIAL ONE (07:22)
[2022-01-18] MEDS ORDERED: Ondansetron PF 4 MG/2 ML Vial ONE (07:37)
[2022-01-18] MEDS ORDERED: PROPOFOL 200 MG/20 ML VIAL ONE ×2 (07:37→13:55)
[2022-01-18] MEDS ORDERED: Rocuronium Bromide 10 MG/ML (10ML VIAL) ONE ×2 (07:37→13:55)
[2022-01-18] MEDS ORDERED: PHENYLEPHRINE-NS 100 MCG/ML 10 ML SYRINGE ONE (07:37)
[2022-01-18] MEDS ORDERED: ePHEDrine 50 MG/ML VIAL ONE (07:37)
[2022-01-18] MEDS ORDERED: Lidocaine 1% PF 5 ML VIAL ONE (07:37)
[2022-01-18] MEDS ORDERED: Metoclopramide HCl 10 MG/2 ML VIAL ONE (07:37)
[2022-01-18] MEDS ORDERED: Albuterol Sulfate HFA (OR ONLY) ONE (08:31)
[2022-01-18] MEDS ORDERED: Bupivacaine 0.25% HCL 30 ML VIAL ONE (09:37)
[2022-01-18] MEDS ORDERED: EPINEPHrine 1 MG/ML AMP ONE (09:37)
[2022-01-18] MEDS ORDERED: Dexamethasone 4 mg/ml Vial ONE (09:37)
[2022-01-18] MEDS ORDERED: SUGAMMADEX SODIUM 200 MG/2 ML VIAL ONE (09:49)
[2022-01-18] MEDS ORDERED: HYDROmorphone 2 MG/ML VIAL SLOW IVP PRN (10:52)
[2022-01-18] MEDS ORDERED: Ondansetron HCl/PF 4 MG/2 ML Vial IVP PRN (10:52)
[2022-01-18] MEDS ORDERED: Promethazine HCl 25 MG/ML VIAL IVPB PRN (10:52)
[2022-01-18] MEDS ORDERED: Promethazine HCl 25 MG/ML VIAL IM PRN ×2 (10:52→10:56)
[2022-01-18] MEDS ORDERED: Ondansetron PF 4 MG/2 ML Vial IVP PRN (10:56)
[2022-01-18] MEDS ORDERED: diphenhydrAMINE 50 MG/ML VIAL IM PRN (10:56)
[2022-01-18] MEDS ORDERED: Zolpidem Tartrate 5 MG TAB PO PRN (10:56)
[2022-01-18] MEDS ORDERED: fentaNYL Citrate/PF 2,000 MCG in Sodium Chloride 0.9% 60 ML IV PRN (10:56)
[2022-01-18] MEDS ORDERED: diphenhydrAMINE 50 MG/ML VIAL IVP PRN (10:56)
[2022-01-18] MEDS ORDERED: Naloxone HCl 0.4 mg/ml Vial IV PRN (10:56)
[2022-01-18] MEDS ORDERED: diphenhydrAMINE 25 MG CAP PO PRN (10:56)
[2022-01-18] MEDS ORDERED: PCA Communication Order-Pharmacy FS SCH (11:00)
[2022-01-18] MEDS ORDERED: HYDROmorphone 0.5 MG/0.5 ML SYRINGE ONE ×3 (11:05→11:49)
[2022-01-18] MEDS: Ondansetron PF 4 MG/2 ML Vial IVP PRN (14:00)
[2022-01-18] MEDS: CEFAZOLIN 2 GM in Sodium Chloride 0.9% 100 ML IVPB SCH ×2 (15:28→23:29)
[2022-01-18] MEDS: Sodium Chloride 0.9% 1,000 ML IV SCH ×2 (15:32→20:47)
[2022-01-18] MEDS: Insulin Regular 300 UNITS/3 ML VIAL SC PRN ×2 (16:27→20:51)
[2022-01-18] MEDS: hydrALAZINE 25 MG TAB PO SCH (20:46)
[2022-01-18] MEDS: Atorvastatin Calcium 40 MG TAB PO SCH (20:46)
[2022-01-19] MEDS: hydrALAZINE 20 MG/ML VIAL SLOW IVP PRN (03:08)
[2022-01-19 03:53] LABS: #Lymphocytes 0.5 thou/uL (1.20-3.40); #Monocytes 0.9 thou/uL (0.11-0.59); #Neutrophils 16.6 thou/uL (1.40-6.50); %Eosinophils 0.2 % (0.0-10.0); %Lymphocytes 2.9 % (21.0-51.0); %Monocytes 4.9 % (0.0-10.0); Hemoglobin 14.5 g/dL (14.0-18.0); Mean Corpuscular HGB CONC 31.4 g/dL (32.0-36.0); Mean Corpuscular Hemoglobin 31.5 pg (27.0-31.0); Mean Platelet Volume 9.1 fL (7.4-10.4); Platelet Count 167 thou/uL (130-400); RBC Distribution Width 12.6 % (11.5-14.5); Red Blood Cell (RBC) Count 4.59 mill/uL (4.70-6.10); White Blood Cell (WBC) Count 18.1 thou/uL (4.8-10.8)
[2022-01-19 04:17] LABS: Anion Gap 15 mmol/L (10-20); BUN (Urea Nitrogen) 35 mg/dL (8.4-25.7); Calc. Creatinine Clearance 45 mL/min (70-130); Carbon Dioxide 23 mmol/L (23-31); Chloride 108 mmol/L (98-107); Glucose 134 mg/dL (80-115); Sodium 141 mmol/L (136-145)
[2022-01-19] MEDS: Ondansetron PF 4 MG/2 ML Vial IVP PRN (05:42)
[2022-01-19] MEDS ORDERED: Digoxin 0.5 MG/2 ML AMP SLOW IVP SCH (06:15)
[2022-01-19] MEDS: Sodium Chloride 0.9% 1,000 ML IV SCH ×2 (07:40→16:22)
[2022-01-19] MEDS: CEFAZOLIN 2 GM in Sodium Chloride 0.9% 100 ML IVPB SCH (07:41)
[2022-01-19] MEDS: Aspirin 300 MG Suppository PR SCH (08:42)
[2022-01-19] MEDS: Carvedilol 6.25 MG TAB PO SCH ×2 (08:42→21:00)
[2022-01-19] MEDS: hydrALAZINE 25 MG TAB PO SCH ×2 (08:54→21:00)
[2022-01-19] MEDS: Furosemide 20 MG TAB PO SCH (08:54)
[2022-01-19 08:57] LABS: Cardiac Risk 3.5 (Less than 4.5)
[2022-01-19] MEDS ORDERED: Aspirin Chewable 81 MG TAB PO SCH (09:00)
[2022-01-19] MEDS ORDERED: Enoxaparin Sodium 40 MG/0.4 ML SYRINGE SC SCH (09:00)
[2022-01-19] MEDS ORDERED: Ondansetron PF 4 MG/2 ML Vial IVP PRN (09:23)
[2022-01-19] MEDS: Famotidine 40 MG/4 ML VIAL SLOW IVP SCH (09:45)
[2022-01-19] MEDS: Multivitamin W/ Minerals 1 TAB PO SCH (10:09)
[2022-01-19] MEDS: Insulin Regular 300 UNITS/3 ML VIAL SC PRN ×2 (11:34→21:43)
[2022-01-19] MEDS ORDERED: ISOVUE-370 76%-LOCM 1 ML ONE (11:56)
[2022-01-19] MEDS: Atorvastatin Calcium 40 MG TAB PO SCH (21:00)
[2022-01-20] MEDS: Sodium Chloride 0.9% 1,000 ML IV SCH ×3 (04:19→21:03)
[2022-01-20 04:43] LABS: Anion Gap 15 mmol/L (10-20); BUN (Urea Nitrogen) 33 mg/dL (8.4-25.7); Calc. Creatinine Clearance 48 mL/min (70-130); Calcium 7.9 mg/dL (7.8-10.44); Carbon Dioxide 20 mmol/L (23-31); Chloride 109 mmol/L (98-107); Glucose 150 mg/dL (80-115); Potassium 4.7 mmol/L (3.5-5.1); Sodium 139 mmol/L (136-145)
[2022-01-20 05:09] LABS: Band 7 % (5-11); Hemoglobin 13.6 g/dL (14.0-18.0); Lymphocytes 2 % (21-51); MDiff Complete? YES; Mean Corpuscular HGB CONC 31.8 g/dL (32.0-36.0); Mean Corpuscular Hemoglobin 31.8 pg (27.0-31.0); Mean Platelet Volume 9.5 fL (7.4-10.4); Monocytes 1 % (0-10); Neutrophil 90 % (42-75); Platelet Count 171 thou/uL (130-400); RBC Distribution Width 12.9 % (11.5-14.5); Red Blood Cell (RBC) Count 4.27 mill/uL (4.70-6.10); White Blood Cell (WBC) Count 20.4 thou/uL (4.8-10.8)
[2022-01-20] MEDS: Insulin Regular 300 UNITS/3 ML VIAL SC PRN (05:52)
[2022-01-20] MEDS: Aspirin 300 MG Suppository PR SCH (07:23)
[2022-01-20] MEDS: Furosemide 20 MG TAB PO SCH ×2 (07:24→08:41)
[2022-01-20] MEDS: hydrALAZINE 25 MG TAB PO SCH ×3 (07:24→21:00)
[2022-01-20] MEDS: Multivitamin W/ Minerals 1 TAB PO SCH (07:24)
[2022-01-20] MEDS: Digoxin 0.125 MG TAB PO SCH ×2 (07:24→08:41)
[2022-01-20] MEDS: Carvedilol 6.25 MG TAB PO SCH ×3 (07:24→21:00)
[2022-01-20] MEDS: hydrALAZINE 20 MG/ML VIAL SLOW IVP PRN (07:29)
[2022-01-20] MEDS: Famotidine 40 MG/4 ML VIAL SLOW IVP SCH (08:04)
[2022-01-20] MEDS ORDERED: Acetaminophen 325 MG TAB PO PRN (20:17)
[2022-01-20] MEDS ORDERED: Acetaminophen 650 MG Suppository PR PRN (20:18)
[2022-01-20] MEDS ORDERED: Piperacillin/Tazobactam 3.375 GM in Sodium Chloride 0.9% 100 ML IVPB SCH (20:30)
[2022-01-20] MEDS: Atorvastatin Calcium 40 MG TAB PO SCH (21:00)
[2022-01-21] MEDS: Piperacillin/Tazobactam 3.375 GM in Sodium Chloride 0.9% 100 ML IVPB SCH ×3 (03:47→17:41)
[2022-01-21 04:05] LABS: #Lymphocytes 0.7 thou/uL (1.20-3.40); #Monocytes 0.9 thou/uL (0.11-0.59); #Neutrophils 11.5 thou/uL (1.40-6.50); %Basophils 0.1 % (0.0-1.0); %Eosinophils 0.2 % (0.0-10.0); %Lymphocytes 5.3 % (21.0-51.0); %Monocytes 6.9 % (0.0-10.0); %Neutrophils 87.6 % (42.0-75.0); Hemoglobin 11.4 g/dL (14.0-18.0); Mean Corpuscular HGB CONC 32.3 g/dL (32.0-36.0); Mean Corpuscular Hemoglobin 32.3 pg (27.0-31.0); Mean Platelet Volume 9.3 fL (7.4-10.4); Platelet Count 135 thou/uL (130-400); RBC Distribution Width 12.6 % (11.5-14.5); Red Blood Cell (RBC) Count 3.54 mill/uL (4.70-6.10); White Blood Cell (WBC) Count 13.1 thou/uL (4.8-10.8)
[2022-01-21 04:30] LABS: Anion Gap 13 mmol/L (10-20); BUN (Urea Nitrogen) 33 mg/dL (8.4-25.7); Calc. Creatinine Clearance 51 mL/min (70-130); Calcium 7.7 mg/dL (7.8-10.44); Carbon Dioxide 21 mmol/L (23-31); Chloride 112 mmol/L (98-107); Glucose 157 mg/dL (80-115); Potassium 4.1 mmol/L (3.5-5.1); Sodium 142 mmol/L (136-145)
[2022-01-21] MEDS: hydrALAZINE 25 MG TAB PO SCH ×2 (09:29→22:49)
[2022-01-21] MEDS: Multivitamin W/ Minerals 1 TAB PO SCH (09:29)
[2022-01-21] MEDS: Furosemide 20 MG TAB PO SCH (09:29)
[2022-01-21] MEDS: Aspirin 300 MG Suppository PR SCH (09:29)
[2022-01-21] MEDS: Carvedilol 6.25 MG TAB PO SCH ×2 (09:29→22:48)
[2022-01-21] MEDS: Digoxin 0.125 MG TAB PO SCH (09:49)
[2022-01-21] MEDS: Sodium Chloride 0.9% 1,000 ML IV SCH ×2 (09:49→23:08)
[2022-01-21] MEDS ORDERED: Famotidine/PF 20 mg/2ml Vial SLOW IVP SCH (10:00)
[2022-01-21] MEDS: Famotidine 40 MG/4 ML VIAL SLOW IVP SCH (10:05)
[2022-01-21] MEDS: hydrALAZINE 20 MG/ML VIAL SLOW IVP PRN ×2 (11:52→23:03)
[2022-01-21] MEDS ORDERED: Amiodarone 150 MG, Admixture Fee 1 EACH in Dextrose 5% in Water 100 ML IVPB SCH (20:00)
[2022-01-21] MEDS ORDERED: Amiodarone In Dextrose 200 ML IVPB SCH (20:45)
[2022-01-21 20:54] LABS: Anion Gap 15 mmol/L (10-20); BUN (Urea Nitrogen) 38 mg/dL (8.4-25.7); Calc. Creatinine Clearance 48 mL/min (70-130); Calcium 7.7 mg/dL (7.8-10.44); Carbon Dioxide 19 mmol/L (23-31); Chloride 114 mmol/L (98-107); Glucose 145 mg/dL (80-115); Magnesium 2.3 mg/dL (1.6-2.6); Potassium 4.2 mmol/L (3.5-5.1); Sodium 144 mmol/L (136-145)
[2022-01-21] MEDS ORDERED: Sodium Chloride 0.9% 500 ML IVPB SCH (21:00)
[2022-01-21] MEDS ORDERED: Sodium Chloride 0.9% 500 ML IV SCH (21:00)
[2022-01-21] MEDS: Atorvastatin Calcium 40 MG TAB PO SCH (21:12)
[2022-01-21] MEDS ORDERED: Metoprolol Tartrate 5 MG/5 ML VIAL IVP SCH (21:15)
[2022-01-21] MEDS ORDERED: Digoxin 0.5 MG/2 ML AMP SLOW IVP SCH (22:45)
[2022-01-21] MEDS ORDERED: Metoprolol Tartrate 5 MG/5 ML VIAL IVP PRN (23:47)
[2022-01-22] MEDS: Amiodarone 450 MG, Admixture Fee 1 EACH in Dextrose 5% in Water 250 ML IVPB SCH ×2 (01:45→14:48)
[2022-01-22] MEDS: Piperacillin/Tazobactam 3.375 GM in Sodium Chloride 0.9% 100 ML IVPB SCH ×3 (01:53→17:50)
[2022-01-22 03:54] LABS: #Lymphocytes 0.5 thou/uL (1.20-3.40); #Monocytes 0.8 thou/uL (0.11-0.59); #Neutrophils 11.9 thou/uL (1.40-6.50); %Basophils 0.2 % (0.0-1.0); %Eosinophils 0.2 % (0.0-10.0); %Lymphocytes 3.6 % (21.0-51.0); %Monocytes 5.9 % (0.0-10.0); %Neutrophils 90.2 % (42.0-75.0); Hemoglobin 11.8 g/dL (14.0-18.0); Mean Corpuscular HGB CONC 31.8 g/dL (32.0-36.0); Mean Corpuscular Hemoglobin 31.6 pg (27.0-31.0); Mean Corpuscular Volume 99.5 fL (78.0-98.0); Mean Platelet Volume 9.3 fL (7.4-10.4); Platelet Count 156 thou/uL (130-400); RBC Distribution Width 12.5 % (11.5-14.5); Red Blood Cell (RBC) Count 3.73 mill/uL (4.70-6.10); White Blood Cell (WBC) Count 13.2 thou/uL (4.8-10.8)
[2022-01-22 04:20] LABS: Anion Gap 14 mmol/L (10-20); BUN (Urea Nitrogen) 43 mg/dL (8.4-25.7); Calc. Creatinine Clearance 46 mL/min (70-130); Carbon Dioxide 18 mmol/L (23-31); Chloride 115 mmol/L (98-107); Glucose 192 mg/dL (80-115); Potassium 4.1 mmol/L (3.5-5.1); Sodium 143 mmol/L (136-145)
[2022-01-22] MEDS: Insulin Regular 300 UNITS/3 ML VIAL SC PRN ×3 (07:11→22:41)
[2022-01-22] MEDS: Famotidine/PF 20 mg/2ml Vial SLOW IVP SCH (09:16)
[2022-01-22] MEDS: Aspirin 300 MG Suppository PR SCH (09:16)
[2022-01-22] MEDS: hydrALAZINE 25 MG TAB PO SCH ×3 (09:24→20:31)
[2022-01-22] MEDS: Digoxin 0.125 MG TAB PO SCH (09:25)
[2022-01-22] MEDS: Carvedilol 6.25 MG TAB PO SCH ×3 (09:25→20:31)
[2022-01-22] MEDS: Furosemide 20 MG TAB PO SCH ×2 (09:26→12:04)
[2022-01-22] MEDS: Multivitamin W/ Minerals 1 TAB PO SCH (09:28)
[2022-01-22] MEDS ORDERED: Digoxin 0.5 MG/2 ML AMP SLOW IVP SCH (09:45)
[2022-01-22] MEDS: Sodium Chloride 0.9% 1,000 ML IV SCH ×2 (12:16→17:42)
[2022-01-22] MEDS: Atorvastatin Calcium 40 MG TAB PO SCH (20:31)
[2022-01-23] MEDS: Sodium Chloride 0.9% 1,000 ML IV SCH (01:24)
[2022-01-23] MEDS: Piperacillin/Tazobactam 3.375 GM in Sodium Chloride 0.9% 100 ML IVPB SCH ×3 (03:09→18:01)
[2022-01-23 03:26] LABS: #Eosinphils 0.2 thou/uL (0.0-0.7); #Lymphocytes 0.7 thou/uL (1.20-3.40); #Neutrophils 11.6 thou/uL (1.40-6.50); %Basophils 0.1 % (0.0-1.0); %Eosinophils 1.7 % (0.0-10.0); %Lymphocytes 5.2 % (21.0-51.0); %Monocytes 7.5 % (0.0-10.0); %Neutrophils 85.5 % (42.0-75.0); Mean Corpuscular HGB CONC 31.7 g/dL (32.0-36.0); Mean Corpuscular Hemoglobin 31.4 pg (27.0-31.0); Platelet Count 177 thou/uL (130-400); RBC Distribution Width 12.6 % (11.5-14.5); Red Blood Cell (RBC) Count 3.81 mill/uL (4.70-6.10); White Blood Cell (WBC) Count 13.6 thou/uL (4.8-10.8)
[2022-01-23 03:45] LABS: Anion Gap 11 mmol/L (10-20); BUN (Urea Nitrogen) 44 mg/dL (8.4-25.7); Calc. Creatinine Clearance 42 mL/min (70-130); Calcium 8.3 mg/dL (7.8-10.44); Carbon Dioxide 21 mmol/L (23-31); Chloride 117 mmol/L (98-107); Glucose 168 mg/dL (80-115); Potassium 3.8 mmol/L (3.5-5.1); Sodium 145 mmol/L (136-145)
[2022-01-23] MEDS: Insulin Regular 300 UNITS/3 ML VIAL SC PRN ×4 (04:10→22:15)
[2022-01-23] MEDS: hydrALAZINE 20 MG/ML VIAL SLOW IVP PRN ×2 (04:36→18:44)
[2022-01-23] MEDS: Amiodarone 450 MG, Admixture Fee 1 EACH in Dextrose 5% in Water 250 ML IVPB SCH ×2 (06:11→22:12)
[2022-01-23] MEDS: hydrALAZINE 25 MG TAB PO SCH ×2 (08:56→21:57)
[2022-01-23] MEDS: Multivitamin W/ Minerals 1 TAB PO SCH (08:56)
[2022-01-23] MEDS: Famotidine/PF 20 mg/2ml Vial SLOW IVP SCH (08:56)
[2022-01-23] MEDS: Digoxin 0.5 MG/2 ML AMP SLOW IVP SCH (08:56)
[2022-01-23] MEDS: Aspirin 325 MG TAB PO SCH (08:56)
[2022-01-23] MEDS: Carvedilol 6.25 MG TAB PO SCH ×2 (08:57→21:57)
[2022-01-23] MEDS: Furosemide 20 MG TAB PO SCH (08:57)
[2022-01-23] MEDS: Sodium Bicarbonate Tab 325 MG TAB PO SCH (21:57)
[2022-01-23] MEDS: Atorvastatin Calcium 40 MG TAB PO SCH (21:57)
[2022-01-24 01:37] LABS: SARS-CoV-2 NAA Rapid Test Not Detected (NotDetected)
[2022-01-24] MEDS: Piperacillin/Tazobactam 3.375 GM in Sodium Chloride 0.9% 100 ML IVPB SCH ×3 (02:31→19:09)
[2022-01-24] MEDS: hydrALAZINE 20 MG/ML VIAL SLOW IVP PRN ×2 (02:33→09:21)
[2022-01-24 04:21] LABS: #Eosinphils 0.4 thou/uL (0.0-0.7); #Lymphocytes 0.6 thou/uL (1.20-3.40); #Monocytes 1.1 thou/uL (0.11-0.59); #Neutrophils 9.8 thou/uL (1.40-6.50); %Eosinophils 3.4 % (0.0-10.0); %Lymphocytes 5.4 % (21.0-51.0); %Monocytes 8.9 % (0.0-10.0); %Neutrophils 82.3 % (42.0-75.0); Hemoglobin 11.9 g/dL (14.0-18.0); Mean Corpuscular HGB CONC 32.7 g/dL (32.0-36.0); Mean Corpuscular Hemoglobin 32.3 pg (27.0-31.0); Mean Corpuscular Volume 98.8 fL (78.0-98.0); Mean Platelet Volume 8.8 fL (7.4-10.4); Platelet Count 185 thou/uL (130-400); RBC Distribution Width 12.6 % (11.5-14.5); Red Blood Cell (RBC) Count 3.68 mill/uL (4.70-6.10); White Blood Cell (WBC) Count 11.9 thou/uL (4.8-10.8)
[2022-01-24] MEDS: Insulin Regular 300 UNITS/3 ML VIAL SC PRN (04:31)
[2022-01-24 04:53] LABS: ALT (SGPT) 19 U/L (8-55); AST (SGOT) 30 U/L (5-34); Albumin 2.6 g/dL (3.4-4.8); Alkaline Phosphatase 51 U/L (40-110); Bilirubin, Direct 0.2 mg/dL (0.1-0.3); Bilirubin, Total 0.5 mg/dL (0.2-1.2); Protein, Total 5.4 g/dL (5.8-8.1)
[2022-01-24 05:55] LABS: Calcium 8.2 mg/dL (7.8-10.44); Chloride 115 mmol/L (98-107); Glucose 177 mg/dL (80-115); Potassium 3.9 mmol/L (3.5-5.1); Sodium 146 mmol/L (136-145)
[2022-01-24 07:19] LABS: Anion Gap 11 mmol/L (10-20); BUN (Urea Nitrogen) 41 mg/dL (8.4-25.7); Calc. Creatinine Clearance 42 mL/min (70-130); Carbon Dioxide 24 mmol/L (23-31); Magnesium 2.3 mg/dL (1.6-2.6)
[2022-01-24] MEDS: Famotidine/PF 20 mg/2ml Vial SLOW IVP SCH (08:56)
[2022-01-24] MEDS: Digoxin 0.5 MG/2 ML AMP SLOW IVP SCH (08:56)
[2022-01-24] MEDS: Carvedilol 6.25 MG TAB PO SCH ×2 (08:57→20:47)
[2022-01-24] MEDS: Sodium Bicarbonate Tab 325 MG TAB PO SCH ×2 (09:13→20:47)
[2022-01-24] MEDS: hydrALAZINE 25 MG TAB PO SCH ×2 (09:13→20:47)
[2022-01-24] MEDS: Amiodarone 450 MG, Admixture Fee 1 EACH in Dextrose 5% in Water 250 ML IVPB SCH (13:31)
[2022-01-24] MEDS ORDERED: Midazolam HCl 2 mg/2 ml Vial ONE (13:34)
[2022-01-24] MEDS ORDERED: Fentanyl 100 MCG/2 ML VIAL ONE ×3 (13:34→17:39)
[2022-01-24] MEDS ORDERED: Ketamine 50 MG/ML (10ML VIAL) ONE (13:35)
[2022-01-24] MEDS ORDERED: Dexmedetomidine 200 MCG/2 ML VIAL ONE (13:35)
[2022-01-24] MEDS: Aspirin 325 MG TAB PO SCH (15:24)
[2022-01-24] MEDS: Furosemide 20 MG TAB PO SCH (15:26)
[2022-01-24] MEDS: Multivitamin W/ Minerals 1 TAB PO SCH (15:26)
[2022-01-24] MEDS ORDERED: Propofol 1,000 MG/100 ML VIAL IV ONE (16:57)
[2022-01-24] MEDS ORDERED: Ventilator Sedation Protocol FS PRN (17:00)
[2022-01-24] MEDS ORDERED: Hydrocortisone Sod Succ/PF 100 mg/2 ml Vial IVP SCH (17:00)
[2022-01-24] MEDS ORDERED: Sodium Chloride 0.9% 1,000 ML IV SCH (17:00)
[2022-01-24] MEDS ORDERED: methylPREDNISolone Sod Succ/PF 125 MG/2 ML VIAL IVP SCH ×2 (17:00→18:00)
[2022-01-24] MEDS ORDERED: Lactated Ringer's 1,000 ML IV SCH ×2 (17:15→18:00)
[2022-01-24] MEDS ORDERED: Norepinephrine 8 MG/0.9% NS 250 ML ONE (17:20)
[2022-01-24] MEDS: methylPREDNISolone Sod Succ 40 MG VIAL ONE ×2 (17:22→17:23)
[2022-01-24] MEDS ORDERED: Fentanyl 100 MCG/2 ML VIAL SLOW IVP SCH ×2 (17:30→18:00)
[2022-01-24 17:33] LABS: Actual Bicarbonate (HCO3a) 23.7 mEq/L (22-28); Base Excess (BEa) -6.1 mEq/L (-2.0 to +3.0); Calcium, Ionized (arterial) 1.18 mmol/L (1.12-1.30); Hemoglobin (Hb) 12.6 g/dL (14.0-18.0); O2 Tension (PaO2), arterial 78.5 mmHg (> 80.0); Potassium - ABG Lab 4.16 mmol/L (3.70-5.30)
[2022-01-24] MEDS ORDERED: Lidocaine 1% (PF) 30 ML VIAL ONE (17:36)
[2022-01-24 17:51] LABS: Actual Bicarbonate (HCO3a) 23.4 mEq/L (22-28); CO2 Tension 57.8 mmHg (35.0-45.0); Calcium, Ionized (arterial) 1.23 mmol/L (1.12-1.30); Hemoglobin (Hb) 13.7 g/dL (14.0-18.0); O2 Tension (PaO2), arterial 100.1 mmHg (> 80.0); Potassium - ABG Lab 4.03 mmol/L (3.70-5.30); Puncture Site RBA; pH, Arterial 7.23 (7.35-7.45)
[2022-01-24 17:52] LABS: pH, Arterial 7.16 (7.35-7.45)
[2022-01-24 17:53] LABS: CO2 Tension 68.6 mmHg (35.0-45.0); Puncture Site LRA
[2022-01-24] MEDS ORDERED: Magnesium 2 GM/50 ML(in water) 2 GM in Premix Bag 1 BAG IVPB SCH (18:00)
[2022-01-24] MEDS ORDERED: Lidocaine 1% (PF) 30 ML VIAL FS SCH (18:00)
[2022-01-24] MEDS ORDERED: Sodium Bicarb 50 MEQ/50 ML Abboject 8.4% SYRINGE IVP SCH (18:00)
[2022-01-24] MEDS: Sodium Bicarb 50 MEQ/50 ML VIAL ONE (18:15)
[2022-01-24] MEDS ORDERED: Propofol 1,000 MG/100 ML VIAL IV PRN (18:30)
[2022-01-24] MEDS ORDERED: Fentanyl BOLUS 250 ML IVPB PRN (18:30)
[2022-01-24] MEDS ORDERED: Morphine 4 MG/ML VIAL SLOW IVP PRN (18:30)
[2022-01-24] MEDS ORDERED: Lorazepam 2 MG/ML VIAL SLOW IVP PRN (18:30)
[2022-01-24] MEDS ORDERED: DISCONTINUE PREVIOUS NARCOTIC PAIN MEDICATIONS AND BENZODIAZEPINES FS SCH (18:30)
[2022-01-24] MEDS ORDERED: Fentanyl CADD 100 ML IV SCH (18:30)
[2022-01-24] MEDS ORDERED: Propofol BOLUS 1,000 MG/100 ML VIAL IV PRN (18:30)
[2022-01-24 18:34] LABS: Actual Bicarbonate (HCO3a) 26.4 mEq/L (22-28); Base Excess (BEa) -1.4 mEq/L (-2.0 to +3.0); CO2 Tension 58.3 mmHg (35.0-45.0); Calcium, Ionized (arterial) 1.12 mmol/L (1.12-1.30); Carboxyhemoglobin (COHb) 1.2 gm% (0.0-3.0); Hemoglobin (Hb) 12.7 g/dL (14.0-18.0); O2 Tension (PaO2), arterial 83.6 mmHg (> 80.0); Potassium - ABG Lab 3.93 mmol/L (3.70-5.30); pH, Arterial 7.27 (7.35-7.45)
[2022-01-24 18:36] LABS: Puncture Site LRA
[2022-01-24 18:37] LABS: ALV-art Gradient 128.725 mmHg (0-20)
[2022-01-24] MEDS ORDERED: Norepinephrine 8 MG/0.9% NS 250 ML IVPB SCH (19:45)
[2022-01-24] MEDS: Atorvastatin Calcium 40 MG TAB PO SCH (20:47)
[2022-01-25] MEDS: methylPREDNISolone Sod Succ/PF 125 MG/2 ML VIAL IVP SCH ×4 (01:16→17:52)
[2022-01-25] MEDS: Piperacillin/Tazobactam 3.375 GM in Sodium Chloride 0.9% 100 ML IVPB SCH ×3 (01:17→17:53)
[2022-01-25 04:12] LABS: #Lymphocytes 0.2 thou/uL (1.20-3.40); #Monocytes 0.1 thou/uL (0.11-0.59); #Neutrophils 10.1 thou/uL (1.40-6.50); %Basophils 0.2 % (0.0-1.0); %Eosinophils 0.1 % (0.0-10.0); %Lymphocytes 1.9 % (21.0-51.0); %Monocytes 1.1 % (0.0-10.0); %Neutrophils 96.7 % (42.0-75.0); Hemoglobin 10.7 g/dL (14.0-18.0); Mean Corpuscular HGB CONC 32.2 g/dL (32.0-36.0); Mean Corpuscular Hemoglobin 32.2 pg (27.0-31.0); Mean Corpuscular Volume 99.9 fL (78.0-98.0); Mean Platelet Volume 9.4 fL (7.4-10.4); Platelet Count 179 thou/uL (130-400); RBC Distribution Width 12.6 % (11.5-14.5); Red Blood Cell (RBC) Count 3.32 mill/uL (4.70-6.10); White Blood Cell (WBC) Count 10.5 thou/uL (4.8-10.8)
[2022-01-25 04:32] LABS: Digoxin 0.72 ng/mL (0.8-2.0)
[2022-01-25 04:39] LABS: Anion Gap 17 mmol/L (10-20); BUN (Urea Nitrogen) 50 mg/dL (8.4-25.7); Calc. Creatinine Clearance 37 mL/min (70-130); Calcium 7.8 mg/dL (7.8-10.44); Carbon Dioxide 22 mmol/L (23-31); Chloride 114 mmol/L (98-107); Glucose 325 mg/dL (80-115); Magnesium 2.7 mg/dL (1.6-2.6); Potassium 4.3 mmol/L (3.5-5.1); Sodium 149 mmol/L (136-145)
[2022-01-25] MEDS: Insulin Regular 300 UNITS/3 ML VIAL SC PRN ×4 (06:07→22:20)
[2022-01-25 07:09] LABS: Actual Bicarbonate (HCO3a) 22.7 mEq/L (22-28); Base Excess (BEa) -2.7 mEq/L (-2.0 to +3.0); Calcium, Ionized (arterial) 1.14 mmol/L (1.12-1.30); Carboxyhemoglobin (COHb) 0.4 gm% (0.0-3.0); Hemoglobin (Hb) 11.7 g/dL (14.0-18.0); O2 Tension (PaO2), arterial 109.4 mmHg (> 80.0); Potassium - ABG Lab 3.89 mmol/L (3.70-5.30); pH, Arterial 7.35 (7.35-7.45)
[2022-01-25 08:55] LABS: Puncture Site LRA
[2022-01-25] MEDS: Multivitamin W/ Minerals 1 TAB PO SCH (09:00)
[2022-01-25] MEDS: hydrALAZINE 25 MG TAB PO SCH ×2 (09:00→20:16)
[2022-01-25] MEDS: Famotidine/PF 20 mg/2ml Vial SLOW IVP SCH (09:39)
[2022-01-25] MEDS: Insulin Glargine 30 UNITS/0.3 ML VIAL SC SCH (09:39)
[2022-01-25] MEDS: Digoxin 0.5 MG/2 ML AMP SLOW IVP SCH (09:39)
[2022-01-25] MEDS: Carvedilol 6.25 MG TAB PO SCH ×2 (09:44→20:16)
[2022-01-25] MEDS: Sodium Bicarbonate Tab 325 MG TAB PO SCH (09:44)
[2022-01-25] MEDS: Aspirin 325 MG TAB PO SCH (09:44)
[2022-01-25] MEDS: Furosemide 20 MG TAB PO SCH (09:44)
[2022-01-25] MEDS ORDERED: Dextrose 50% Abboject 50 ML SYRINGE SLOW IVP PRN (10:01)
[2022-01-25] MEDS ORDERED: HumaLOG 300 UNITS/3 ML VIAL SC PRN (10:01)
[2022-01-25] MEDS ORDERED: Dextrose 5% in Water 1,000 ML IV PRN (10:01)
[2022-01-25] MEDS ORDERED: Carvedilol 6.25 MG TAB PO SCH ×2 (10:02→10:15)
[2022-01-25] MEDS ORDERED: hydrALAZINE 25 MG TAB PO SCH ×2 (10:02→10:15)
[2022-01-25] MEDS ORDERED: cloNIDine 0.1mg/24 Hour PATCH TD SCH (11:23)
[2022-01-25] MEDS ORDERED: Pancrelipase DR 12,000 1 CAP FS PRN (13:00)
[2022-01-25] MEDS ORDERED: Sodium Bicarbonate Tab 325 MG TAB PER TUBE PRN (13:00)
[2022-01-25] MEDS: Multivits W-Minerals Liquid 15 ML LIQ PER TUBE SCH (15:19)
[2022-01-25] MEDS: Atorvastatin Calcium 40 MG TAB PO SCH (20:16)
[2022-01-26] MEDS: methylPREDNISolone Sod Succ/PF 125 MG/2 ML VIAL IVP SCH ×2 (00:21→07:06)
[2022-01-26] MEDS: Piperacillin/Tazobactam 3.375 GM in Sodium Chloride 0.9% 100 ML IVPB SCH ×2 (02:00→09:35)
[2022-01-26 04:28] LABS: Hemoglobin 10.6 g/dL (14.0-18.0); Mean Corpuscular Hemoglobin 31.8 pg (27.0-31.0); Mean Corpuscular Volume 99.5 fL (78.0-98.0); Mean Platelet Volume 9.3 fL (7.4-10.4); Platelet Count 211 thou/uL (130-400); RBC Distribution Width 12.6 % (11.5-14.5); Red Blood Cell (RBC) Count 3.33 mill/uL (4.70-6.10); White Blood Cell (WBC) Count 18.1 thou/uL (4.8-10.8)
[2022-01-26 04:54] LABS: Anion Gap 12 mmol/L (10-20); BUN (Urea Nitrogen) 62 mg/dL (8.4-25.7); Calc. Creatinine Clearance 35 mL/min (70-130); Calcium 8.1 mg/dL (7.8-10.44); Carbon Dioxide 26 mmol/L (23-31); Chloride 116 mmol/L (98-107); Glucose 195 mg/dL (80-115); Sodium 150 mmol/L (136-145)
[2022-01-26 05:11] LABS: Band 7 % (5-11); Lymphocytes 2 % (21-51); MDiff Complete? YES; Monocytes 3 % (0-10); Neutrophil 88 % (42-75)
[2022-01-26] MEDS ORDERED: Bupivacaine PF 0.5% 30 ML VIAL ONE (06:52)
[2022-01-26] MEDS ORDERED: Lidocaine 1% w/Epinephrine 1:100K 20 ML VIAL ONE (06:52)
[2022-01-26] MEDS ORDERED: Midazolam HCl 2 mg/2 ml Vial ONE (06:54)
[2022-01-26] MEDS ORDERED: fentaNYL Citrate/PF 100 MCG/2 ML SYRINGE ONE (06:55)
[2022-01-26] MEDS ORDERED: Lidocaine 1% PF 5 ML VIAL ONE (07:33)
[2022-01-26] MEDS ORDERED: PROPOFOL 200 MG/20 ML VIAL ONE (07:33)
[2022-01-26] MEDS ORDERED: Rocuronium Bromide 10 MG/ML (10ML VIAL) ONE (07:33)
[2022-01-26] MEDS: Dextrose 5% in Water 1,000 ML IV SCH ×2 (08:43→19:28)
[2022-01-26] MEDS: hydrALAZINE 25 MG TAB PO SCH ×2 (09:07→22:49)
[2022-01-26] MEDS: Carvedilol 6.25 MG TAB PO SCH ×2 (09:08→22:48)
[2022-01-26] MEDS: Famotidine/PF 20 mg/2ml Vial SLOW IVP SCH (09:10)
[2022-01-26] MEDS: Digoxin 0.5 MG/2 ML AMP SLOW IVP SCH (09:14)
[2022-01-26] MEDS: Aspirin 325 MG TAB PO SCH (09:14)
[2022-01-26] MEDS: Insulin Glargine 30 UNITS/0.3 ML VIAL SC SCH (09:27)
[2022-01-26] MEDS: hydrALAZINE 20 MG/ML VIAL SLOW IVP PRN (10:17)
[2022-01-26] MEDS: Insulin Regular 300 UNITS/3 ML VIAL SC PRN ×3 (10:26→22:49)
[2022-01-26] MEDS: Multivits W-Minerals Liquid 15 ML LIQ PER TUBE SCH (11:58)
[2022-01-26] MEDS: methylPREDNISolone Sod Succ 40 MG VIAL IVP SCH ×3 (12:30→19:28)
[2022-01-26] MEDS ORDERED: Morphine 4 MG/ML VIAL SLOW IVP PRN (19:14)
[2022-01-26] MEDS: Atorvastatin Calcium 40 MG TAB PO SCH (22:48)
[2022-01-26] MEDS: Amoxicillin/Potassium Clav 875 MG TAB PO SCH (22:48)
[2022-01-27] MEDS: Dextrose 5% in Water 1,000 ML IV SCH (05:05)
[2022-01-27] MEDS: hydrALAZINE 20 MG/ML VIAL SLOW IVP PRN (06:09)
[2022-01-27 06:52] LABS: Anion Gap 13 mmol/L (10-20); BUN (Urea Nitrogen) 60 mg/dL (8.4-25.7); Calc. Creatinine Clearance 39 mL/min (70-130); Calcium 7.7 mg/dL (7.8-10.44); Carbon Dioxide 21 mmol/L (23-31); Chloride 111 mmol/L (98-107); Glucose 324 mg/dL (80-115); Magnesium 2.8 mg/dL (1.6-2.6); Potassium 4.2 mmol/L (3.5-5.1); Sodium 141 mmol/L (136-145)
[2022-01-27 06:53] LABS: Digoxin 0.92 ng/mL (0.8-2.0)
[2022-01-27 07:08] LABS: #Lymphocytes 0.4 thou/uL (1.20-3.40); #Monocytes 0.8 thou/uL (0.11-0.59); #Neutrophils 15.7 thou/uL (1.40-6.50); %Eosinophils 0.1 % (0.0-10.0); %Lymphocytes 2.6 % (21.0-51.0); %Monocytes 4.6 % (0.0-10.0); %Neutrophils 92.7 % (42.0-75.0); Hemoglobin 11.8 g/dL (14.0-18.0); Hypochromia SLIGHT = 6-15 cells (100X) (0-5/hpf); MDiff Complete? YES; Macrocytosis MODERATE=16-30 cells (100X) (0-5/hpf); Mean Corpuscular HGB CONC 29.6 g/dL (32.0-36.0); Mean Platelet Volume 9.6 fL (7.4-10.4); Ovalocytes SLIGHT = 2-5 cells (100X) (0-1/hpf); Platelet Count 218 thou/uL (130-400); Platelet Morphology Comment Appears Adequate; Polychromasia SLIGHT = 2-3 cells (100X) (0-2/hpf); RBC Distribution Width 12.7 % (11.5-14.5); Red Blood Cell (RBC) Count 3.92 mill/uL (4.70-6.10); White Blood Cell (WBC) Count 16.9 thou/uL (4.8-10.8)
[2022-01-27] MEDS: Insulin Regular 300 UNITS/3 ML VIAL SC PRN ×2 (07:46→11:20)
[2022-01-27] MEDS ORDERED: Dextrose 5% in Water 1,000 ML IV SCH ×2 (09:20→11:37)
[2022-01-27] MEDS: Insulin Glargine 30 UNITS/0.3 ML VIAL SC SCH ×2 (09:23→20:58)
[2022-01-27] MEDS: Amoxicillin/Potassium Clav 875 MG TAB PO SCH ×2 (09:25→20:51)
[2022-01-27] MEDS: Famotidine/PF 20 mg/2ml Vial SLOW IVP SCH (09:25)
[2022-01-27] MEDS: Carvedilol 6.25 MG TAB PO SCH ×2 (09:26→20:53)
[2022-01-27] MEDS: hydrALAZINE 25 MG TAB PO SCH ×2 (09:27→20:54)
[2022-01-27] MEDS: Digoxin 0.5 MG/2 ML AMP SLOW IVP SCH (09:28)
[2022-01-27] MEDS: Aspirin 325 MG TAB PO SCH (09:30)
[2022-01-27] MEDS ORDERED: Metoclopramide HCl 10 MG/2 ML VIAL IVP PRN (10:09)
[2022-01-27] MEDS ORDERED: Polyethylene Glycol 3350 17 GM Packet PER TUBE PRN (10:17)
[2022-01-27] MEDS: Multivits W-Minerals Liquid 15 ML LIQ PER TUBE SCH (10:31)
[2022-01-27] MEDS: Amlodipine 5 MG TAB PO SCH (13:01)
[2022-01-27] MEDS: Atorvastatin Calcium 40 MG TAB PO SCH (20:53)
[2022-01-27] MEDS: Senokot S 8.6-50 MG TAB PO SCH (20:54)
[2022-01-27] MEDS: Heparin 5,000 UNITS/ML VIAL SC SCH (20:56)
[2022-01-27] MEDS ORDERED: Famotidine 20 MG TAB PO SCH (21:00)
[2022-01-28] MEDS: hydrALAZINE 20 MG/ML VIAL SLOW IVP PRN (06:19)
[2022-01-28 07:35] LABS: Anion Gap 15 mmol/L (10-20); BUN (Urea Nitrogen) 61 mg/dL (8.4-25.7); Calc. Creatinine Clearance 41 mL/min (70-130); Carbon Dioxide 25 mmol/L (23-31); Chloride 110 mmol/L (98-107); Glucose 145 mg/dL (80-115); Magnesium 2.4 mg/dL (1.6-2.6); Potassium 4.5 mmol/L (3.5-5.1); Sodium 145 mmol/L (136-145)
[2022-01-28] MEDS: Carvedilol 6.25 MG TAB PO SCH ×3 (08:15→21:23)
[2022-01-28] MEDS: Digoxin 0.5 MG/2 ML AMP SLOW IVP SCH (08:15)
[2022-01-28] MEDS: Amoxicillin/Potassium Clav 875 MG TAB PO SCH ×3 (08:15→21:23)
[2022-01-28] MEDS: Aspirin 325 MG TAB PO SCH (08:15)
[2022-01-28] MEDS: hydrALAZINE 25 MG TAB PO SCH ×3 (08:16→21:26)
[2022-01-28] MEDS: Senokot S 8.6-50 MG TAB PO SCH ×3 (08:17→21:24)
[2022-01-28] MEDS: Polyethylene Glycol 3350 17 GM Packet PER TUBE SCH ×2 (08:17→12:55)
[2022-01-28] MEDS ORDERED: Aspirin 325 MG TAB PO SCH (08:35)
[2022-01-28] MEDS: Heparin 5,000 UNITS/ML VIAL SC SCH (08:49)
[2022-01-28 09:15] LABS: Actual Bicarbonate (HCO3v) 25 mEq/L (22-28); Base Excess -0.9 mEq/L (-2.0 to +3.0); Calcium, Ionized (venous) 1.12 mmol/L (1.16-1.32); Chloride (VBG) 108 mmol/L (98-106); Potassium (VBG) 4.29 mmol/L (3.70-5.30); Sodium 141.1 mmol/L (133-146); pH (venous) 7.35 (7.32-7.43)
[2022-01-28] MEDS ORDERED: Fentanyl 100 MCG/2 ML VIAL ONE (09:30)
[2022-01-28] MEDS ORDERED: Tranexamic Acid 500 MG in Syringe 0 ML IVP SCH (09:30)
[2022-01-28] MEDS ORDERED: Tranexamic Acid 1,000 MG/10 ML VIAL IVP SCH (09:30)
[2022-01-28] MEDS ORDERED: Fentanyl CADD 100 ML IV SCH (09:45)
[2022-01-28] MEDS ORDERED: Propofol 1,000 MG/100 ML VIAL IV PRN (09:45)
[2022-01-28] MEDS: Pantoprazole 40 MG VIAL IVP SCH ×2 (09:47→21:24)
[2022-01-28 09:51] LABS: Platelet Count 266 thou/uL (130-400)
[2022-01-28] MEDS ORDERED: Fentanyl 100 MCG/2 ML VIAL SLOW IVP SCH (10:00)
[2022-01-28 10:01] LABS: Fibrinogen 598 mg/dL (253-463)
[2022-01-28 10:02] LABS: INR-International Normal Ratio 1.1; PTT 23.7 sec (22.9-36.1); Prothrombin Time 14.2 sec (12.0-14.7)
[2022-01-28 10:09] LABS: D-Dimer Test 4.77 *mcg/mL (0.27-0.43)
[2022-01-28] MEDS ORDERED: fentaNYL Citrate/PF 100 MCG/2 ML SYRINGE ONE (10:23)
[2022-01-28] MEDS ORDERED: Midazolam HCl 2 mg/2 ml Vial ONE (10:24)
[2022-01-28] MEDS ORDERED: PHENYLEPHRINE-NS 100 MCG/ML 10 ML SYRINGE ONE ×2 (11:02→11:24)
[2022-01-28 11:17] LABS: Actual Bicarbonate (HCO3a) 26.8 mEq/L (22-28); Base Excess (BEa) -2.3 mEq/L (-2.0 to +3.0); CO2 Tension 68.2 mmHg (35.0-45.0); Calcium, Ionized (arterial) 1.16 mmol/L (1.12-1.30); Carboxyhemoglobin (COHb) 0.6 gm% (0.0-3.0); Hemoglobin (Hb) 12.9 g/dL (14.0-18.0); O2 Tension (PaO2), arterial 380.4 mmHg (> 80.0); pH, Arterial 7.21 (7.35-7.45)
[2022-01-28 11:18] LABS: Puncture Site RFA
[2022-01-28] MEDS ORDERED: Norepinephrine 8 MG/0.9% NS 250 ML ONE (11:48)
[2022-01-28] MEDS: Dextrose 5% in Water 1,000 ML IV SCH (12:11)
[2022-01-28] MEDS ORDERED: Norepinephrine 8 MG/0.9% NS 250 ML IVPB SCH (12:30)
[2022-01-28 12:36] LABS: Hemoglobin 11.4 g/dL (14.0-18.0); Platelet Count 304 thou/uL (130-400)
[2022-01-28] MEDS: Aspirin Chewable 81 MG TAB PO SCH (12:53)
[2022-01-28] MEDS: Insulin Glargine 30 UNITS/0.3 ML VIAL SC SCH ×2 (12:54→21:25)
[2022-01-28] MEDS: Multivits W-Minerals Liquid 15 ML LIQ PER TUBE SCH (12:54)
[2022-01-28] MEDS: Amlodipine 5 MG TAB PO SCH (12:55)
[2022-01-28] MEDS: methylPREDNISolone Sod Succ/PF 125 MG/2 ML VIAL IVP SCH (12:57)
[2022-01-28] MEDS: Piperacillin/Tazobactam 3.375 GM in Sodium Chloride 0.9% 100 ML IVPB SCH (12:58)
[2022-01-28] MEDS: Insulin Regular 300 UNITS/3 ML VIAL SC PRN (16:44)
[2022-01-28] MEDS: Atorvastatin Calcium 40 MG TAB PO SCH (21:24)
[2022-01-29] MEDS ORDERED: Metoclopramide HCl 10 MG/2 ML VIAL IVP SCH (00:30)
[2022-01-29] MEDS ORDERED: Bisacodyl 10 MG SUPP PR SCH (02:15)
[2022-01-29 05:13] VITALS: BMI 31.0
[2022-01-29] MEDS: Metoclopramide HCl 10 MG/2 ML VIAL IVP SCH ×3 (05:27→18:36)
[2022-01-29 08:01] LABS: Anion Gap 13 mmol/L (10-20); BUN (Urea Nitrogen) 62 mg/dL (8.4-25.7); Calc. Creatinine Clearance 37 mL/min (70-130); Calcium 7.9 mg/dL (7.8-10.44); Carbon Dioxide 27 mmol/L (23-31); Chloride 108 mmol/L (98-107); Glucose 154 mg/dL (80-115); Magnesium 2.6 mg/dL (1.6-2.6); Potassium 4.1 mmol/L (3.5-5.1); Sodium 144 mmol/L (136-145)
[2022-01-29 08:11] LABS: pH, Arterial 7.37 (7.35-7.45)
[2022-01-29 08:12] LABS: Actual Bicarbonate (HCO3a) 28.5 mEq/L (22-28); Base Excess (BEa) 2.6 mEq/L (-2.0 to +3.0); CO2 Tension 50.4 mmHg (35.0-45.0); Carboxyhemoglobin (COHb) 0.8 gm% (0.0-3.0); Hemoglobin (Hb) 10.4 g/dL (14.0-18.0); Potassium - ABG Lab 3.89 mmol/L (3.70-5.30); Puncture Site RRA
[2022-01-29] MEDS: Dextrose 5% in Water 1,000 ML IV SCH (08:40)
[2022-01-29 08:50] LABS: Band 19 % (5-11); Eosinophils 4 % (0-10); Hemoglobin 10.1 g/dL (14.0-18.0); Hypochromia SLIGHT = 6-15 cells (100X) (0-5/hpf); Lymphocytes 3 % (21-51); MDiff Complete? YES; Mean Corpuscular HGB CONC 30.7 g/dL (32.0-36.0); Mean Corpuscular Hemoglobin 30.9 pg (27.0-31.0); Mean Platelet Volume 9.7 fL (7.4-10.4); Monocytes 8 % (0-10); Neutrophil 65 % (42-75); Platelet Count 204 thou/uL (130-400); Platelet Morphology Comment Appears Adequate; RBC Distribution Width 12.7 % (11.5-14.5); Reactive Lymphocytes 1 % (0-10); Red Blood Cell (RBC) Count 3.26 mill/uL (4.70-6.10); White Blood Cell (WBC) Count 18.5 thou/uL (4.8-10.8)
[2022-01-29] MEDS: Carvedilol 6.25 MG TAB PO SCH ×2 (09:03→20:58)
[2022-01-29] MEDS: Aspirin Chewable 81 MG TAB PO SCH (09:03)
[2022-01-29] MEDS: Amoxicillin/Potassium Clav 875 MG TAB PO SCH ×2 (09:03→20:57)
[2022-01-29] MEDS: Pantoprazole 40 MG VIAL IVP SCH ×2 (09:04→20:57)
[2022-01-29] MEDS: Polyethylene Glycol 3350 17 GM Packet PER TUBE SCH (09:04)
[2022-01-29] MEDS: hydrALAZINE 25 MG TAB PO SCH ×2 (09:04→20:58)
[2022-01-29] MEDS: Multivits W-Minerals Liquid 15 ML LIQ PER TUBE SCH (09:04)
[2022-01-29] MEDS: Senokot S 8.6-50 MG TAB PO SCH ×2 (09:05→20:58)
[2022-01-29] MEDS: Insulin Glargine 30 UNITS/0.3 ML VIAL SC SCH ×2 (09:05→20:59)
[2022-01-29] MEDS: Digoxin 0.5 MG/2 ML AMP SLOW IVP SCH (09:41)
[2022-01-29] MEDS ORDERED: PROPOFOL 20 ML ONE (11:19)
[2022-01-29] MEDS: Amlodipine 5 MG TAB PO SCH (12:59)
[2022-01-29] MEDS: Insulin Regular 300 UNITS/3 ML VIAL SC PRN ×2 (16:07→21:52)
[2022-01-29] MEDS: Atorvastatin Calcium 40 MG TAB PO SCH (20:57)
[2022-01-30] MEDS: Metoclopramide HCl 10 MG/2 ML VIAL IVP SCH ×4 (00:01→18:37)
[2022-01-30 04:24] LABS: Magnesium 2.7 mg/dL (1.6-2.6)
[2022-01-30] MEDS: Dextrose 5% in Water 1,000 ML IV SCH (05:49)
[2022-01-30 09:12] LABS: Actual Bicarbonate (HCO3v) 27 mEq/L (22-28); Base Excess 2.4 mEq/L (-2.0 to +3.0); Calcium, Ionized (venous) 1.06 mmol/L (1.16-1.32); Chloride (VBG) 105 mmol/L (98-106); Potassium (VBG) 4.05 mmol/L (3.70-5.30); pH (venous) 7.43 (7.32-7.43)
[2022-01-30] MEDS: Carvedilol 6.25 MG TAB PO SCH ×2 (09:16→21:27)
[2022-01-30] MEDS: Senokot S 8.6-50 MG TAB PO SCH ×2 (09:16→21:25)
[2022-01-30] MEDS: hydrALAZINE 25 MG TAB PO SCH ×2 (09:16→21:25)
[2022-01-30] MEDS: Amoxicillin/Potassium Clav 875 MG TAB PO SCH (09:16)
[2022-01-30] MEDS: Aspirin Chewable 81 MG TAB PO SCH (09:16)
[2022-01-30] MEDS: Pantoprazole 40 MG VIAL IVP SCH ×2 (09:17→21:25)
[2022-01-30] MEDS: Polyethylene Glycol 3350 17 GM Packet PER TUBE SCH (09:17)
[2022-01-30] MEDS: Insulin Glargine 30 UNITS/0.3 ML VIAL SC SCH ×2 (09:18→21:26)
[2022-01-30] MEDS: Multivits W-Minerals Liquid 15 ML LIQ PER TUBE SCH (09:19)
[2022-01-30] MEDS ORDERED: Sterile Water 10 ML VIAL IVP SCH (09:30)
[2022-01-30] MEDS ORDERED: Activase 2 MG VIAL CATH SCH ×2 (09:30→15:15)
[2022-01-30 09:42] LABS: Band 4 % (5-11); Eosinophils 2 % (0-10); Hemoglobin 9.4 g/dL (14.0-18.0); Lymphocytes 2 % (21-51); MDiff Complete? YES; Mean Corpuscular HGB CONC 31.4 g/dL (32.0-36.0); Mean Corpuscular Volume 98.6 fL (78.0-98.0); Mean Platelet Volume 9.5 fL (7.4-10.4); Monocytes 1 % (0-10); Neutrophil 90 % (42-75); Platelet Count 224 thou/uL (130-400); Platelet Morphology Comment Appears Adequate; Polychromasia SLIGHT = 2-3 cells (100X) (0-2/hpf); RBC Distribution Width 12.2 % (11.5-14.5); Reactive Lymphocytes 1 % (0-10); Red Blood Cell (RBC) Count 3.02 mill/uL (4.70-6.10); White Blood Cell (WBC) Count 20.4 thou/uL (4.8-10.8)
[2022-01-30 09:53] LABS: ALT (SGPT) 39 U/L (8-55); AST (SGOT) 40 U/L (5-34); Albumin 2.1 g/dL (3.4-4.8); Alkaline Phosphatase 61 U/L (40-110); Anion Gap 13 mmol/L (10-20); BUN (Urea Nitrogen) 59 mg/dL (8.4-25.7); Bilirubin, Total 0.3 mg/dL (0.2-1.2); Calc. Creatinine Clearance 38 mL/min (70-130); Calcium 7.3 mg/dL (7.8-10.44); Carbon Dioxide 27 mmol/L (23-31); Chloride 105 mmol/L (98-107); Digoxin 1.17 ng/mL (0.8-2.0); Globulin 1.9 g/dL (2.4-3.5); Glucose 257 mg/dL (80-115); Potassium 4.3 mmol/L (3.5-5.1); Sodium 141 mmol/L (136-145)
[2022-01-30] MEDS: Insulin Regular 300 UNITS/3 ML VIAL SC PRN ×3 (10:17→21:35)
[2022-01-30] MEDS: Amlodipine 5 MG TAB PO SCH (13:03)
[2022-01-30] MEDS ORDERED: Mannitol 12.5 GM/50 ML SLOW IVP SCH ×2 (16:30)
[2022-01-30] MEDS: Dexamethasone 4 mg/ml Vial SLOW IVP SCH ×2 (17:11→22:40)
[2022-01-30] MEDS: Digoxin 0.5 MG/2 ML AMP SLOW IVP SCH (17:20)
[2022-01-30] MEDS: Atorvastatin Calcium 40 MG TAB PO SCH (21:25)
[2022-01-31] MEDS: Mannitol 12.5 GM/50 ML SLOW IVP SCH ×2 (00:09→06:10)
[2022-01-31] MEDS: hydrALAZINE 20 MG/ML VIAL SLOW IVP PRN (00:15)
[2022-01-31] MEDS: Metoclopramide HCl 10 MG/2 ML VIAL IVP SCH ×3 (00:15→13:42)
[2022-01-31] MEDS: Dextrose 5% in Water 1,000 ML IV SCH (00:24)
[2022-01-31 04:11] LABS: Band 6 % (5-11); Hemoglobin 11.6 g/dL (14.0-18.0); Hypochromia SLIGHT = 6-15 cells (100X) (0-5/hpf); MDiff Complete? YES; Macrocytosis SLIGHT = 6-15 cells (100X) (0-5/hpf); Mean Corpuscular HGB CONC 31.7 g/dL (32.0-36.0); Mean Corpuscular Hemoglobin 31.7 pg (27.0-31.0); Mean Corpuscular Volume 99.9 fL (78.0-98.0); Mean Platelet Volume 9.9 fL (7.4-10.4); Monocytes 3 % (0-10); Neutrophil 91 % (42-75); Ovalocytes SLIGHT = 2-5 cells (100X) (0-1/hpf); Platelet Count 286 thou/uL (130-400); Platelet Morphology Comment Appears Adequate; Polychromasia SLIGHT = 2-3 cells (100X) (0-2/hpf); RBC Distribution Width 12.7 % (11.5-14.5); Red Blood Cell (RBC) Count 3.67 mill/uL (4.70-6.10); White Blood Cell (WBC) Count 29.8 thou/uL (4.8-10.8)
[2022-01-31 04:13] LABS: ALT (SGPT) 38 U/L (8-55); AST (SGOT) 32 U/L (5-34); Albumin 2.5 g/dL (3.4-4.8); Alkaline Phosphatase 90 U/L (40-110); Anion Gap 14 mmol/L (10-20); BUN (Urea Nitrogen) 54 mg/dL (8.4-25.7); Bilirubin, Total 0.3 mg/dL (0.2-1.2); Calc. Creatinine Clearance 37 mL/min (70-130); Calcium 8.7 mg/dL (7.8-10.44); Carbon Dioxide 28 mmol/L (23-31); Chloride 111 mmol/L (98-107); Globulin 3.3 g/dL (2.4-3.5); Glucose 334 mg/dL (80-115); Potassium 5.2 mmol/L (3.5-5.1); Protein, Total 5.8 g/dL (5.8-8.1); Sodium 148 mmol/L (136-145)
[2022-01-31] MEDS: Dexamethasone 4 mg/ml Vial SLOW IVP SCH ×2 (04:22→10:16)
[2022-01-31] MEDS: Insulin Regular 300 UNITS/3 ML VIAL SC PRN (06:28)
[2022-01-31 08:37] LABS: Actual Bicarbonate (HCO3a) 28.2 mEq/L (22-28); CO2 Tension 52.1 mmHg (35.0-45.0); Calcium, Ionized (arterial) 1.16 mmol/L (1.12-1.30); Carboxyhemoglobin (COHb) 0.4 gm% (0.0-3.0); Hemoglobin (Hb) 9.8 g/dL (14.0-18.0); O2 Tension (PaO2), arterial 87.2 mmHg (> 80.0); Potassium - ABG Lab 4.83 mmol/L (3.70-5.30); pH, Arterial 7.35 (7.35-7.45)
[2022-01-31 08:38] LABS: Puncture Site RRA
[2022-01-31 08:39] LABS: ALV-art Gradient 97.225 mmHg (0-20)
[2022-01-31] MEDS ORDERED: cloNIDine 0.1mg/24 Hour PATCH TD SCH (09:00)
[2022-01-31] MEDS ORDERED: Norepinephrine 8 MG/0.9% NS 250 ML ONE (09:11)
[2022-01-31] MEDS: Carvedilol 6.25 MG TAB PO SCH (09:59)
[2022-01-31] MEDS: Digoxin 0.5 MG/2 ML AMP SLOW IVP SCH (10:00)
[2022-01-31] MEDS: Insulin Glargine 30 UNITS/0.3 ML VIAL SC SCH (10:00)
[2022-01-31] MEDS: Multivits W-Minerals Liquid 15 ML LIQ PER TUBE SCH (10:01)
[2022-01-31] MEDS: Pantoprazole 40 MG VIAL IVP SCH (10:01)
[2022-01-31] MEDS: Senokot S 8.6-50 MG TAB PO SCH (10:02)
[2022-01-31] MEDS: Polyethylene Glycol 3350 17 GM Packet PER TUBE SCH (10:02)
[2022-01-31] MEDS: hydrALAZINE 25 MG TAB PO SCH (10:03)
[2022-01-31 12:05] VITALS: TEMP 97.8
[2022-01-31] MEDS: Amlodipine 5 MG TAB PO SCH (13:42)
[2022-01-31 14:45] VITALS: BP 117/54
== END 2022-01-31 11:20 | disposition expired | DRG 3 ==
LOC: SURG A 01-18 05:32 → CCU 01-18 13:37 → IMCU/EMU 01-24 04:38 → CCU 01-24 16:46
PROVIDERS: ADMIT Thoracic Surgery (Cardiothoracic Vascular Surgery); ATTEND Internal Medicine
PROC: 0BBF0ZZ Excision of Right Lower Lung Lobe, Open Approach (ICD-10-PCS; principal; 2022-01-18)
PROC: 07B70ZX Excision of Thorax Lymphatic, Open Approach, Diagnostic (ICD-10-PCS; 2022-01-18)
PROC: 0W9900Z Drainage of Right Pleural Cavity with Drainage Device, Open Approach (ICD-10-PCS; 2022-01-18)
PROC: 0D9670Z Drainage of Stomach with Drainage Device, Via Natural or Artificial Opening (ICD-10-PCS; 2022-01-24)
PROC: 3E033XZ Introduction of Vasopressor into Peripheral Vein, Percutaneous Approach (ICD-10-PCS; 2022-01-24)
PROC: 5A1955Z Respiratory Ventilation, Greater than 96 Consecutive Hours (ICD-10-PCS; 2022-01-24)
PROC: 0BH18EZ Insertion of Endotracheal Airway into Trachea, Via Natural or Artificial Opening Endoscopic (ICD-10-PCS; 2022-01-24)
PROC: 5A1955Z Respiratory Ventilation, Greater than 96 Consecutive Hours (ICD-10-PCS; 2022-01-24)
PROC: 0BCB8ZZ Extirpation of Matter from Left Lower Lobe Bronchus, Via Natural or Artificial Opening Endoscopic (ICD-10-PCS; 2022-01-24)
PROC: 0BC38ZZ Extirpation of Matter from Right Main Bronchus, Via Natural or Artificial Opening Endoscopic (ICD-10-PCS; 2022-01-24)
PROC: 0BC78ZZ Extirpation of Matter from Left Main Bronchus, Via Natural or Artificial Opening Endoscopic (ICD-10-PCS; 2022-01-24)
PROC: 0DB78ZX Excision of Stomach, Pylorus, Via Natural or Artificial Opening Endoscopic, Diagnostic (ICD-10-PCS; 2022-01-24)
PROC: 0DH63UZ Insertion of Feeding Device into Stomach, Percutaneous Approach (ICD-10-PCS; 2022-01-24)
PROC: 3E0G76Z Introduction of Nutritional Substance into Upper GI, Via Natural or Artificial Opening (ICD-10-PCS; 2022-01-24)
PROC: 0B110F4 Bypass Trachea to Cutaneous with Tracheostomy Device, Open Approach (ICD-10-PCS; 2022-01-26)
PROC: 0BC18ZZ Extirpation of Matter from Trachea, Via Natural or Artificial Opening Endoscopic (ICD-10-PCS; 2022-01-28)
PROC: 0B21XFZ Change Tracheostomy Device in Trachea, External Approach (ICD-10-PCS; 2022-01-29)
DX: C34.31 Malignant neoplasm of lower lobe, right bronchus or lung (principal); I63.512 Cerebral infarction due to unspecified occlusion or stenosis of left middle cerebral artery; G93.41 Metabolic encephalopathy; G93.6 Cerebral edema; G93.5 Compression of brain; J69.0 Pneumonitis due to inhalation of food and vomit; J96.01 Acute respiratory failure with hypoxia; J96.02 Acute respiratory failure with hypercapnia; N17.9 Acute kidney failure, unspecified; I13.0 Hypertensive heart and chronic kidney disease with heart failure and stage 1 through stage 4 chronic kidney disease, or unspecified chronic kidney disease; I50.42 Chronic combined systolic (congestive) and diastolic (congestive) heart failure; E46 Unspecified protein-calorie malnutrition; N18.4 Chronic kidney disease, stage 4 (severe); G81.91 Hemiplegia, unspecified affecting right dominant side; R47.01 Aphasia; J98.11 Atelectasis; J90 Pleural effusion, not elsewhere classified; E87.2 Acidosis; E87.0 Hyperosmolality and hypernatremia; J95.01 Hemorrhage from tracheostomy stoma; K56.7 Ileus, unspecified; Z99.11 Dependence on respirator [ventilator] status; I48.92 Unspecified atrial flutter; C77.1 Secondary and unspecified malignant neoplasm of intrathoracic lymph nodes; Z20.822 Contact with and (suspected) exposure to COVID-19; F17.210 Nicotine dependence, cigarettes, uncomplicated; I25.10 Atherosclerotic heart disease of native coronary artery without angina pectoris; E78.5 Hyperlipidemia, unspecified; I65.22 Occlusion and stenosis of left carotid artery; E11.65 Type 2 diabetes mellitus with hyperglycemia; E11.22 Type 2 diabetes mellitus with diabetic chronic kidney disease; G93.89 Other specified disorders of brain; D63.1 Anemia in chronic kidney disease; R13.12 Dysphagia, oropharyngeal phase; I48.91 Unspecified atrial fibrillation; R29.810 Facial weakness; E87.8 Other disorders of electrolyte and fluid balance, not elsewhere classified; E83.42 Hypomagnesemia; E88.09 Other disorders of plasma-protein metabolism, not elsewhere classified; D72.829 Elevated white blood cell count, unspecified; Y83.8 Other surgical procedures as the cause of abnormal reaction of the patient, or of later complication, without mention of misadventure at the time of the procedure; K59.00 Constipation, unspecified; Z95.1 Presence of aortocoronary bypass graft; Z87.39 Personal history of other diseases of the musculoskeletal system and connective tissue; Z79.82 Long term (current) use of aspirin; Z98.890 Other specified postprocedural states; Z83.3 Family history of diabetes mellitus; Z79.899 Other long term (current) drug therapy; Z78.1 Physical restraint status; Z68.30 Body mass index [BMI] 30.0-30.9, adult; Z79.84 Long term (current) use of oral hypoglycemic drugs; Z82.49 Family history of ischemic heart disease and other diseases of the circulatory system; Z80.9 Family history of malignant neoplasm, unspecified; Z82.3 Family history of stroke
CPT/HCPCS: 36415; 36416; 36430; 36600; 70450; 70496; 70498; 70551; 71045; 74018; 78610; 80048; 80053; 80061; 80076; 80162; 82271; 82607; 82746; 82805; 83036; 83735; 83930; 84439; 84443; 85014; 85018; 85025; 85049; 85300; 85362; 85379; 85384; 85610; 85730; 86850; 86900; 86901; 87040; 87070; 87081; 87086; 87205; 88305; 88309; 88331; 88332; 88341; 88342; 93005; 93010; 93306; 93970; 94002; 94003; 94640; 95712; 95819; 95957; A4649; C1776; C9113; J0171; J0282; J0360; J0690; J1100; J1160; J1170; J1644; J1815; J2001; J2150; J2250; J2270; J2370; J2405; J2543; J2704; J2765; J2920; J2930; J2997; J3010; J3475; J3490; J7050; J7070; J7120; J7620; Q9966; S0020; S0028; U0002; U0003; U0005